=== PATIENT | female | born 1940 | race Caucasian/White ===

== ENCOUNTER 2018-03-01 20:04 | Observation (INO) | payer MEDICARE, BC ==
[~2018-03-01] VITALS: Ht 165.1 cm; Wt 87.5 kg
[~2018-03-01 20:04] MED LIST: CYCLOBENZAPRINE10 MG PO; LOMOTIL TABLET1 EACH PO; MEDROL4 M1 PO; NAPROXEN500 MG PO; NORVASC5 MG PO; OMEPRAZOLE20 M1 PO; TOPROL XL100 MG PO
--- OUTSIDE RECORDS SUMMARY | 2018-03-01 20:08 | XMS ---
PreManage Notification: JOVANA CHAIREZ Security Can Carrier Events No recent Security Events currently on file CRITERIA MET - POL CARE PROVIDERS There are no care providers on record at this time. Thuy has no Care Guidelines for this patient. Radha VISIT COUNT (12 MO.) 2 [facility] [place] TOTAL 2 NOTE: Visits indicate total known visits. ED/UCC VISIT TRACKING (12 MO.) 03/01/2018 20:04 [facility] [place] TYPE: Emergency COMPLAINT: - R LEG PAIN/NO INJURY 08/23/2017 18:02 [facility] [place] TYPE: Emergency COMPLAINT: - FAINTING/ILL DIAGNOSES: - Other [place] [facility] (current[facility] drug therapy - Nicotine dependence, unspecified, uncomplicated - Influenza due to other identified influenza virus with other respiratory manifestations - Essential (primary) hypertension - Syncope and collapse - Dehydration INPATIENT VISIT TRACKING (12 MO.) No inpatient visits to display in this time frame [email or web address]
--- NOTE | 2018-03-02 02:00 | NUR ---
PT ARRIVED ON FLOOR AT 0150. SBP WAS ELEVATED AT 160. PT AT THAT TIME DENIED PAIN AND HAD NO OTHER CONCERNS.
--- NOTE | 2018-03-02 02:24 | NUR ---
PT ARRIVED TO UNIT VIA STRETCHER. PT PULLED TO BED. TOLERATED WELL. PT C/O SPASMS TO R KNEE WHILE WRTIER PERFORMING ADMISSION ASSESSMENT. PT REQUESTS PRN. PT DENIES OTHER NEEDS AT THIS TIME. CALL LIGHT WITHIN REACH.
--- NOTE | 2018-03-02 03:08 | NUR ---
0.5MG DILAUDED WAS GIVEN FOR PAIN /. RIGHT PEDIS PULSE IS +1 BUT TOES ARE WARM TO TOUCH. RIGHT KNEE HAS MINIMAL EDEMA PRESENT, NO REDNESS OR HEAT NOTED. ALL LOBES ARE CLEAR, ABD SOUNDS ARE PRESENT. PT IS DUE TO VOID BY 0600. NO NEW CONCERNS NOTED AT THIS TIME.
--- NOTE | 2018-03-02 05:00 | NUR ---
PT AT THIS TIME IS SLEEPING.
--- NOTE | 2018-03-02 06:13 | NUR ---
PT ARRIVED ON FLOOR AT 0150. SBP WAS ELEVATED 162. ALL LOBES ARE CLEAR, ABD SOUNDS PRESENT. RIGHT KNEE HAS MINIMAL EDMEA, PEDIS PULSES +2, NO REDNESS AND NO HEAT NOTED. PAIN IS WELL CONTROLLED WITH PRN PAIN MEDS. PT AT TIMES HAS LEG SPASMS WELL. PT SO FAR STILL HAS NOT VOIDED. WILL PUT PT ON BED HIGH SINCE SHE IS NOT ABLE TO PUT WEIGHT ON HER RIGHT LEG.
--- NOTE | 2018-03-02 07:50 | NUR ---
PT OFF FLOOR TO CT/XRAY. ORDER FOR 2 VIEW CHEST X-RAY AND CT OF R KNEE. PATEL WILL BE PLACED ONCE SHE RETURNS. PT ABLE TO STAND PIVOT TO WHEELCHAIR.
--- NOTE | 2018-03-02 07:56 | NUR ---
RECIEVED REPORT FROM JENN CHAO. DR HARRISON IN ROOM WITH PT. DISCUSSED PLAN OF CARE, GETTING OUT OF BED, IMAGING, AND PATEL. RN WILL PLACE PATEL WHEN PT RETURNS TO THE FLOOR FROM IMAGING.
--- NOTE | 2018-03-02 08:18 | NUR ---
pateint went for a CT, back and breakfast is ordered
--- NOTE | 2018-03-02 10:00 | NUR ---
PATEL PLACED BY JENN AGUILAR WITH ASSISTANCE FROM JENN CHILDS. PT TOLERATED WELL. PATEL PLACED IN STERILE FASHION. CLEAR YELLOW URINE RETURNED.
[2018-03-02] MEDS ORDERED: OMEPRAZOLE MAGN20 MG PO (10:28)
--- NOTE | 2018-03-02 10:28 | NUR ---
MED REC COMPLETE
--- NOTE | 2018-03-02 12:44 | NUR ---
PT RESTING IN BED, WAITING FOR HER AND DAUGHTER TO RETURN. SHE HAS LUNCH AT BEDSIDE, SHE WILL EAT WHEN THEY RETURN. BOLUS OF FLUIDS IS RUNNING. NO COMPLAINTS OF PAIN, NO NAUSEA, NO VOMITING. PATEL DRAINING YELLOW URINE.
--- NOTE | 2018-03-02 13:46 | NUR ---
REPORT RECEIVED FROM JENN CHILDS. PT IN BED WITH FAMILY IN ROOM. TALKATIVE AND PLEASANT. PT DENIES CONCERNS. STATES HER KNEE IS SWOLLEN AND IS STILL PAINFUL BUT ACCEPTABLE.
--- NOTE | 2018-03-02 16:15 | NUR ---
PT SLEEPING AND APPEARS COMFORTABLE. FAMILY IN ROOM.
--- NOTE | 2018-03-02 17:24 | NUR ---
PT UP TO BEDSIDE COMMODE FOR SOME GAS. PT ABLE TO PIVOT TO BEDSIDE COMMODE. FAMILY IN ROOM. PT STATES HER KNEE IS FEELING MODERATELY BETTER.
--- NOTE | 2018-03-02 18:28 | NUR ---
PT HAD A GOOD NAP THIS AFTERNOON AND STATES THAT HER KNEE IS FEELING SLIGHTLY BETTER. WAS ABLE TO PIVOT TRANSFER TO THE BEDSIDE COMMODE FOR SOME GAS. GABAPENTIN SEEMS TO BE HELPING SHE HAS NOT HAD ANY PAIN MEDICATION. SL. JORGE MONTES DE OCA DRAINING LIGHT YELLOW URINE. ENCOURAGE ORAL INTAKE. 1 LITER BOLUS GIVEN.
--- NOTE | 2018-03-02 20:00 | NUR ---
RECEIVED REPORT AT 1900. FOUND PT IN BED AWAKE WITH AT BEDSIDE. PT HAD NO NEEDS OR CONCERNS AT THIS TIME.
--- NOTE | 2018-03-02 20:27 | NUR ---
VITALS DONE AND CHARTED.
--- NOTE | 2018-03-02 22:00 | NUR ---
V/S ARE WDL, ALL LOBES ARE CLEAR, ABD SOUNDS ARE PRESENT. RIGHT KNEE HAS SLIGHT EDEMA PRESENT BUT NO REDNESS OR HEAT WAS NOTED. SLIGHT EDEMA WAS ALSO NOTED TO RIGHT ANKLE. PT DENIES PAIN OR MUSCLE SPASMS AT THIS TIME. NO NEW CONCERNS NOTED SO FAR.
--- NOTE | 2018-03-03 | NUR ---
PT IS SLEEPING AT THIS TIME. RR IS REGULAR.
--- NOTE | 2018-03-03 02:00 | NUR ---
PT IS SLEEPING AT THIS TIME. RR NORMAL.
--- NOTE | 2018-03-03 04:01 | NUR ---
PT IS SLEEPING AT THIS TIME.
--- NOTE | 2018-03-03 05:12 | NUR ---
PT HAD AN UNEVENTFUL NIGHT. RIGHT KNEE HAS HAD NO CHANGES IN SYMPTOMS AND APPEARANCE SINCE HER ADMISSION. PT DID NOT NEED ANY PRN PAIN MEDICATION FORM ME SO FAR. V/S ARE WDL SO FAR. URINE OUTPUT IS ADEQUATE. NO NEW CONCERNS SO FAR.
--- NOTE | 2018-03-03 06:18 | NUR ---
VITALS AND I&OS DONE AND CHARTED. FRESH WATER GIVEN. BEDSIDE TABLE AND CALL LIGHT IN REACH.
--- NOTE | 2018-03-03 07:18 | NUR ---
RECIEVED BEDSIDE REPORT FROM JENN ADAMS. PT AWAKE AND ALERT IN BED, SMILING AND TALKING. PT REPORTS FEELING "GOOD", REQUESTS 3RD CUP OF COFFEE. PT REPORTS NO PAIN IN RIGHT KNEE, NO REDNESS, NO WARMTH. PATEL DRAINING COPIOUS AMOUNTS OF URINE.
--- NOTE | 2018-03-03 08:15 | NUR ---
PATEINT BOARD UPDATED, PATEINT IN BED, SAID SHE IS FEELING BETTER, BREAKFAST ORDERED
--- NOTE | 2018-03-03 09:29 | NUR ---
DISCUSSED TIMING OF CARE WITH FELA, PHYSICAL THERAPY. SHE WILL BE IN TO DO PT EVAL ABOUT 1000. WE DISCUSSED OFFERING PAIN MEDICATION PRIOR TO EVAL. RN ASKED PT IF SHE WOULD LIKE PAIN MEDICATIONS PRIOR TO PHYSICAL THERAPY. PT DECLINED PAIN MEDS, STATED "I'LL BE STRONG". RN EDUCATED PT ON TAKING APPROPRIATE PAIN MEDICATIONS AND HEALING. PT STILL DECLINED PAIN MEDS. RN ADVISED TO CALL IF SHE CHANGES HER MIND OR NEEDS PAIN MEDS AFTER PHYSICAL THERAPY.
--- NOTE | 2018-03-03 09:52 | NUR ---
PATIENT IN BED, REFILLED ICE WATER, NEEDED NO OTHER ASSISTANCE AT THE TIME
--- NOTE | 2018-03-03 14:02 | NUR ---
PT IN BED WITH FAMILY AT BEDSIDE. STATES SHE HAS NO PAIN IN HER KNEE UNLESS SHE MOVES IT. TOLERATED PHYSICAL THERAPY WELL. NO NAUSEA, NO DISCOMFORT, PT STATES SHE "FEELS PRETTY GOOD TODAY."
--- NOTE | 2018-03-03 15:27 | NUR ---
PT CALLED RN TO ROOM TO ASSIST HER WALKING TO THE BATHROOM. PT ATTEMPTED TO HAVE A BM, NO RESULTS. PT WALKED WITH RN AND FWW TO BATHROOM. TOLERATED WELL. PT REPORTED PAIN WITH AMBULATION, BUT PAIN WAS TOLERABLE. DENIED NEED FOR PAIN MEDICATIONS. DAUGHTER AT BEDSIDE.
--- NOTE | 2018-03-03 17:27 | NUR ---
PATIENT RESTING IN BED, CALL LIGHT IN REACH, FAMILY IN ROOM. NO OTHER NEEDS AT THIS TIME.
--- NOTE | 2018-03-03 17:29 | NUR ---
PT REMAINS AFEBRILE WITH NO REDNESS, MINIMAL SWELLING, AND NO WARMTH ON RIGHT KNEE. PT REPORTS PAIN WITH MOVEMENT, BUT PAIN IS TOLERABLE. PT INITIATED AMBULATION IN ROOM WITH FWW AND RN. ONE PERSON ASSIST. PT TOLERATING DIET WELL. URINE OUTPUT QS. VSS. PT EVAL COMPLETE. PT AMBULATED WITH PHYSICAL THERAPY.
--- NOTE | 2018-03-03 20:00 | NUR ---
RECEIVED REPORT AT 1900, FOUND PT IN BED WATCHING TV. PT DENIED PAIN AND HAD NO OTHER CONCERNS AT THAT TIME.
--- NOTE | 2018-03-03 20:45 | NUR ---
VITALS AND I&OS DONE AND CHARTED, FRESH ICE WATER GIVEN. BEDSIDE TABLE AND CALL LIGHT IN REACH. PT NEEDS NOTHING AT THIS TIME.
--- NOTE | 2018-03-03 21:58 | NUR ---
V/S ARE WDL, ALL LOBES CLEAR. RIGHT KNEE HAS LOOKED THE SAME SINCE ADMISSION. PAIN IS 6/10. PRN 5MG OXY GIVEN. NO CHANGES AT ALL NOTED SO FAR.
--- NOTE | 2018-03-04 | NUR ---
PT IS SLEEPING AT THIS TIME.
--- NOTE | 2018-03-04 02:00 | NUR ---
PT IS SLEEPING AT THIS TIME.
--- NOTE | 2018-03-04 04:10 | NUR ---
FOUND PT AWAKE IN BED COMPLAINING OF PAIN 6/10. PT STATED THAT PO PRN OXY DID NOT HELP. WHILE GIVING IV PRN TORADOL IT WAS NOTED THAT HER IV SITE WAS LEAKING. PT AT THIS TIME REFUSES A NEW IV SITE AND DOES NOT WANT THE PO PRN OXY EITHER. MD HARRISON TO BE CALLED FOR ANOTHER PO PRN PAIN MEDICATION.
--- NOTE | 2018-03-04 06:26 | NUR ---
PT AT FIRST HAD A VERY UNEVENTFUL NIGHT. PRN OXY WAS GIVEN BEFORE BEDTIME DUE TO PAIN. RIGHT KNEE HAS REMAIND UNCHANGED SINCE ADMISSION ON 03/02. PT SLEPT MOST OF THE NIGHT. V/S ARE WDL. AT ABOUT 0400 PT HAD PAIN 6/10 AND IV TORADOL WAS TO BE GIVEN. IV SITE WAS LEAKING, PT REFUSED A NEW SITE AND ALSO REFUSED PRN OXY. MD HARRISON WAS CALLED AND AN ORDER FOR PO TORADOL WAS GIVEN. PT AT THIS TIME IS SLEEPING. ONE NEW CONCERN AT THIS TIME IS THAT BASE OF HER LEFT THUMB IS SWOLLEN AND VERY PAINFUL TO TOUCH. WILL CONTINUE TO MONITOR.
--- NOTE | 2018-03-04 07:12 | NUR ---
RECIEVED BEDSIDE REPORT FROM JENN ADAMS. PT IS AWAKE AND ALERT IN BED. PT FEELS SHE DID NOT SLEEP MOST OF THE NIGHT, REPORT FROM NIGHT RN IS THAT SHE SLEPT WELL UNTIL 0400. PT FEELS OXY WAS NOT EFFECTIVE FOR PAIN CONTROL, PO TORADOL WAS EFFECTIVE. PT WOULD LIKE DR HARRISON TO EXPLAIN DISEASE PROCESS AND WHY SHE IS NOT "BETTER" TO PT AND HER . PT HAS NO IV ACCESS.
--- NOTE | 2018-03-04 09:45 | NUR ---
PATIENT WAS IN BED, FACE WASHED, PATIENT NOW LAYING IN BED. VITALS DONE , CALL LIGHT IN REACH, 1 PA WITH 4WW THERPHY NOW WITH PATIENT WALKING IN GUO, FRESH WATER GIVEN. NO OTHER NEEDS AT THIS TIME.
--- NOTE | 2018-03-04 09:54 | NUR ---
PT UP WALKING IN HALLS WITH PHYSICAL THERAPY. PT APPEARS TO BE TOLERATING WELL, LAUGHING AND SMILING WITH STAFF. RN ANSWERED QUESTIONS RE: GOUT POSED BY THERAPY AND PT.
--- NOTE | 2018-03-04 10:40 | NUR ---
PATIENT IN BED RESTING WATCHING TV. FRESH WATER GIVEN. CALL LIGHT IN REACH. NO OTHER NEEDS AT THIS TIME.
--- NOTE | 2018-03-04 11:25 | NUR ---
PATEL CATH REMOVED, PT TOLERATED WELL. PERICARE PERFORMED. 200ML DARK YELLOW URINE IN BAG.
[2018-03-04] MEDS ORDERED: KETOROLAC TROME10 MG PO (11:33)
[2018-03-04] MEDS ORDERED: NEURONTIN300 MG PO (11:34)
[2018-03-04] MEDS ORDERED: OXYCODONE HCL5 MG PO (11:34)
--- NOTE | 2018-03-04 12:23 | NUR ---
Verified with Dr Thorne that he intended for patient to receive #60 doses (not capsules). Called [facility], talked to Rolf [facility], changed RX to Gabapentin 300mg with sig of: Take 2 capsules PO TID. Disp #120
--- NOTE | 2018-03-04 12:33 | NUR ---
Per patient request, she does not want the RX for oxycodone. Dr Thorne is aware of this & replaced pain medication with ketorolac. Pharmacist cancelled the order for oxycodone on discharge orders.
== END 2018-03-04 13:15 | disposition home or self-care (01) ==
LOC: ED 20:04 → MS 20:05
PROVIDERS: ADMIT Specialist
PROC: 0S9C3ZX Drainage of Right Knee Joint, Percutaneous Approach, Diagnostic (ICD-10-PCS; principal; 2018-03-01)
DX: M17.11 Unilateral primary osteoarthritis, right knee (principal); M54.9 Dorsalgia, unspecified; G89.29 Other chronic pain; I10 Essential (primary) hypertension; E78.00 Pure hypercholesterolemia, unspecified; R26.2 Difficulty in walking, not elsewhere classified; F17.200 Nicotine dependence, unspecified, uncomplicated; K21.9 Gastro-esophageal reflux disease without esophagitis; M81.0 Age-related osteoporosis without current pathological fracture; K52.9 Noninfective gastroenteritis and colitis, unspecified; M25.861 Other specified joint disorders, right knee; Z79.899 Other long term (current) drug therapy
CPT/HCPCS: 20610; 36415; 51702; 71046; 73560; 73700; 80053; 81001; 82945; 85025; 85810; 86431; 87070; 87205; 89051; 89060; 96372; 96374; 96375; 97110; 97116; 97161; 99284; G0378; G8978; G8979; J1170; J1885; J2270; J3410; J7120

== ENCOUNTER 2019-06-20 01:24 | Inpatient (IN) | payer MEDICARE, BC ==
[~2019-06-20] VITALS: Ht 165.1 cm; Wt 84.4 kg
[~2019-06-20 01:24] MED LIST changes: +ASPIRIN EC325 MG PO; +CELECOXIB200 MG PO; +CHOLESTYRAMINE P4 GM PO; +FOLIC ACID1 MG PO; +GABAPENTIN300 MG PO; +GABAPENTIN600 MG PO; +IMODIUM A-D2 M2 PO; +KETOROLAC TROME10 MG PO; +LISINOPRIL5 MG PO; +MAGNESIUM400 M1 PO; +METHOTREXATE2.5 MG PO; +NEURONTIN300 MG PO; +OMEPRAZOLE MAGN20 MG PO; +OXYCODONE HCL5 MG PO; +SENNA LAX8.6 MG PO; +TYLENOL EXTRA500 MG PO; +VITAMIN B-121000 MCG PO; +VITAMIN D350 MC2 PO
--- NOTE | 2019-06-20 06:50 | NUR ---
PATIENT ARRIVED HERE ON MED/SURG AT 0645. PATIENT'S RIGHT KNEE IS STILL BANDAGED FROM HER SURGERY LAST SUNDAY. PER REPORT FROM JENN CRUZ IN THE ER. PATIENT HAD A SYNCOPAL EPISODE AT HOME AND HIT HER HEAD ON THE VANITY SHE WENT DOWN. CALLED AN AMBULANCE AND SHE WAS BROUGHT TO THE ER. PATIENT'S ACEWRAP STILL REMAINS IN PLACE FROM WHEN SHE DISCHARGED FROM HERE YESTERDAY. PATIENT STILL ON-Q AND HOA IN PLACE. HOA DRESSING COVERED IN DRIED BLOOD ON THE OUTER RIGHT HALF. PATIENT HAS A HX OF RT TOTAL KNEE ON SUNDAY. PATIENT'S PAIN IS 7/10 AND HER LAST PAIN MEDS WERE TAKEN AT HOME AT 1930. WAS TOLD IN REPORT PATIENT TAKES ASA 325MG BID. HEAD CT AND EKG NEGATIVE PER REPORT. 500ML BOLUS OF FLUID AND ROCEPHIN GIVEN IN ER.
--- NOTE | 2019-06-20 06:58 | NUR ---
PT ARRIVED TO FLOOR AT 0645. COMPLETED ADMISSION HX WITH PT. SHE IS ORIENTED TO THE ROOM AND DENIES FURTHER NEEDS AT THIS TIME. IS AT BEDSIDE AND CALL LIGHT IS CLOSE.
--- NOTE | 2019-06-20 07:37 | EKG ---
[facility] [address] [place], [place] [address] Signed Normal sinus rhythm Normal ECG When compared with ECG of 23-AUG-2017 18:08, No significant change was found Confirmed by KRIS RASHEED MD ([id number]) on 06/20/2019 7:37:02 AM Electronically Signed By: KRIS RASHEED MD 06/20/19 0737 PATIENT NAME: JOVANA CHAIREZ Electrocardiogram DATE OF : 42 PHYSICIAN: KRIS RASHEED MD REPORT #: [id number] REPORT IS CONFIDENTIAL AND NOT TO BE RELEASED WITHOUT AUTHORIZATION
--- NOTE | 2019-06-20 07:43 | NUR ---
Spoke with Briana, states she fell in the bathroom while using her walker. States she did not want to return to the hospital, family called the ambulance. States she hit the back of her head. Has ramp, walker, commode at home. Family will assist her. Would like to return to home on discharge.
--- NOTE | 2019-06-20 08:00 | NUR ---
PT STATES SHE IS COMFORTABLE AT THIS TIME, BREAKFAST ORDERED, AT BEDSIDE AND COFFEE OFFERED. COMPLETED ADMISSION ASSESSMENT, PT DENIES NEEDS AT THIS TIME.
--- NOTE | 2019-06-20 09:22 | NUR ---
MED REC COMPLETED. PATIENT DISCHARGED YESTERDAY. MED REC WAS CURRENT AT DISCHARGE.
--- NOTE | 2019-06-20 11:19 | NUR ---
SBA INTO BATHROOM USING FWW TO VOID, MINIMAL ASSIST REQUIRED DENIED DIZZINESS, ORTHOSTATIC V/S TAKEN. STATES SHE WANTS TO NAP BEFORE WORKING WITH PT. CALL LIGHT IN EASY REACH.
--- NOTE | 2019-06-20 12:42 | NUR ---
VISITED BRIEFLY WITH PT SHE WAS BEING WHEELED TO HER RM FROM ER. PT WAS DISCOURAGED, GAVE BLESSING, WILL FOLLOW NEEDED
--- NOTE | 2019-06-20 13:50 | NUR ---
IN TO TALK WITH PT, SHE STATED UNDERSTANDING OF WHY SHE CAME BACK INTO THE HOSPITAL AND THEN STATES, "I NEED A DAY OFF FROM EVERYTHING WHERE I JUST DON'T HAVE TO DO ANYTHING THAT ANYONE ASKS. I JUST WANT TO BE LEFT ALONE." STATES SHE REMEMBERS THE INFORMATION THAT WE GAVE HER FROM HER KNEE SURGERY. PT JUST WANTS TO REST.
--- NOTE | 2019-06-20 14:21 | NUR ---
PT IN TO EVAL PATIENT, PREMEDICATED FOR PAIN, PATIENT IS EMOTIONAL THIS AFTERNOON, STATES THERE IS NO SPECIFIC REASON, DENIES ANY NEEDS.
--- NOTE | 2019-06-20 15:00 | NUR ---
Discussed this patient with Dr. Mckeon. Concerns pt has arthrities, shoulder injury, and deconditioning. Will evaluate patient. In and spoke with patient and she feels she is really not able to go home. Pt is tearful. Explained options of PT with HH or possible admit to a SNF for further PT for strengthening. Gave names of SNFs/HH in the area and she would like to stay in [place]. Patient and discussed options and feel pt would do best at a SNF. Let her know I will send her chart to [facility]. Pt states she declined PT today as she did not feel up to it. I spoke with OT and PT and they both feel pt would do best with placement in a SNF and may need a longer term placement for strengthening. they feel pt wou
--- NOTE | 2019-06-20 16:45 | NUR ---
ANSWERED PATIENT'S CALL LIGHT HELPED HER A LITTLE BIT TO THE BATHROOM. SHE USED HER WALKER.
--- NOTE | 2019-06-20 17:37 | NUR ---
PT HAS BEEN UP TO BATHROOM WITH SBA USING FWW, REFUSED TO SIT UP IN CHAIR TODAY, TEARFUL WHEN PHYSICAL THERAPY WORKED WITH HER, GOOD PAIN CONTROL USING OXYCODONE AND POSITIONING OF R KNEE, ICE TO KNEE ON AND OFF TODAY, GOOD CMS TO FOOT, HIMA HOSE ON, PICCO DRSG INTACT WITH GREEN LIGHT, ON-Q PATENT AND SECURE. NO NEW SHADOWING NOTED ON DRSG. PT STATES SHE IS JUST EMOTIONAL AND MAY NEED TO GO TO [facility]. ENC PATIENT TO CONT. TO WORK WITH REHAB TO GET STRONGER. POOR APPETITE TODAY. ALTERNATIVES OFFERED BUT MOSTLY REFUSED. USING CALL LIGHT APPROPROIATELY.
--- NOTE | 2019-06-20 19:27 | NUR ---
SHIFT REPORT RECIEVED FROM JAZMINE BARAJAS. HOA DRY AND INTACT. ON-Q @ 8, HOA BLINKING GREEN. MILD SWEELING TO INNER RIGHT KNEE. PAIN 7/10, ICE PACK PROVIDED. NO OTHER NEEDS, CALL LIGHT IN REACH.
--- NOTE | 2019-06-20 20:25 | NUR ---
PT ASSESSMENT, VS AND I&O COMPLETED. PRN PAIN MEDICATION PROVIDED. PT UP TO BSC WITH 1 PA, FWW AND BACK TO BED. IV CDI, WNL, FLUSHED WELL. ICE WATER PROVIDED. HOA DRY, INTACT, FLASHING GREEN. ON-Q AT 8. NO OTHER NEEDS. CALL LIGHT IN REACH.
--- NOTE | 2019-06-21 00:02 | NUR ---
PT RESTING IN BED, EYES CLOSED. RR 16, EVEN, UNLABORED. CALL LIGHT IN REACH.
--- NOTE | 2019-06-21 02:13 | NUR ---
PT STATES PAIN IS 6/10 IN RIGHT KNEE. PRN PAIN MED PROVIDED. ASSESSMENT, VS AND I&O COMPLETED. PT PROVIDED ITEMS TO BRUSH TEETH BY CANDACE BARAJAS. ICE PACK AND ICE WATER PROVED. NO OTHER NEEDS. CALL LIGHT IN REACH.
--- NOTE | 2019-06-21 04:11 | NUR ---
PT RESTING IN BED, EYES CLOSED. RR 16, EVEN, UNLABORED. CALL LIGHT IN REACH.
--- NOTE | 2019-06-21 06:15 | NUR ---
PT CALLS TO USE BR AND BACK TO BED. PAIN 6/10 IN RIGHT KNEE. PRN PAIN MED PROVIDED. ORTHOSTATIC VS COMPLETED. ICE PACK AND ICE WATER PROVIDED. NO OTHER NEEDS. CALL LIGHT IN REACH.
--- NOTE | 2019-06-21 06:37 | NUR ---
PT HAS SLEPT MOST THE SHIFT. PAIN IN RIGHT KNEE MANAGED WITH PRN PAIN MEDICATION. GENERALIZED SWELLING NOTED TO INNER LEFT KNEE. EDEMA TO BLE, 1+, HIMA HOSE ON. ICE PACKS PROVIDED FOR KNEE. HOA HAS DRIED BLOOD OVER MOST THE DRESSING, BLINKING GREEN. ON-Q SET AT 8. ORTHOSTATIC VITALS TAKEN, NEGATIVE. PT AMBULATES WELL WITH 1PA, FWW. PT HAS A LOWER BP IN THE LEFT ARM THAN THE RIGHT ARM. TELE # 1 SR TRENDING IN THE 60S. IV CDI, WNL, FLUSHED WELL.
--- NOTE | 2019-06-21 07:22 | NUR ---
PT RESTING EYES CLOSED BEDSIDE REPORT RECEIVED
--- NOTE | 2019-06-21 08:44 | NUR ---
SPOKE WITH DR RASHEED RE B/P OF , INSTRUCTED TO GIVE METOPROLOL BUT HOLD LISINOPRIL THIS AM. OK TO DC ORTHOSTATIC BP. CONT. TELE AT THIS TIME.
--- NOTE | 2019-06-21 08:51 | NUR ---
THRUSH SYMTOMS AND LOW BP REPORTED TO DR DUGAN SHE INSTRUCTS HOLD LISINOPRIL GIVE METOPROLOL
--- NOTE | 2019-06-21 11:07 | NUR ---
DAUGHTER PRESENT IN ROOM, PT UP TO WORK WITH P/T
--- NOTE | 2019-06-21 12:30 | NUR ---
CALL LIGHT ANSWERED. PATIENT RESTING IN BED. FAMILY IN ROOM. PATIENT GOES TO USE THE BATHROOM. PATIENT USES WALKER. ONE PERSON ASSISTING. PATIENT BACKS TO BED. CALL LIGHT WITHIN REACH. NO OTHER NEEDS AT THIS TIME
--- NOTE | 2019-06-21 13:26 | NUR ---
PATIENT RESTING IN BED. AND RN IN ROOM. VITAL SIGNS AND I&O DONE. CALL LIGHT WITHIN REACH. NO OTHER NEEDS AT THIS TIME
--- NOTE | 2019-06-21 14:27 | NUR ---
DR HARRISON IN TO SEE PT, REMOVES DRESSING TO KNEE APPLIES A ZIP CLOSURE DEVICE INSTRUCTS STAFF TO APPLY ALLEVYN OVER THIS. PT IS RESTING IN BED CRYO IN PLACE. AGREES SHE IS COMFORTABLE.
--- NOTE | 2019-06-21 15:45 | NUR ---
PATIENT RESTING IN BED. IN ROOM. CALL LIGHT WITHIN REACH. NO OTHER NEEDS AT THIS TIME
--- NOTE | 2019-06-21 17:39 | NUR ---
PATIENT RESTING IN BED. VITAL SIGNS AND I&O DONE. LOW SYSTOLIC BLOOD PRESSURE. RN NOTIFIED. CRYO MACHINE FILLED. CALL LIGHT WITHIN REACH. NO OTHER NEEDS AT THIS TIME
--- NOTE | 2019-06-21 19:26 | NUR ---
SHIFT REPORT RECIEVED FROM MAYCOL BARAJAS. R KNEE SWELLING TO INNER KNEE, GENERALIZED. DRESSING DRY AND INTACT, SMALL AREA OF DRIED BLOOD. IV CDI. PAIN 5/10, PT DENIES NEED FOR PAIN INTERVENTION. CRYO CUFF, HIMA HOSE IN PLACE. TELE #1 SHOWS SR @ 70. NO NEEDS AT THIS TIME. CALL LIGHT IN REACH.
--- NOTE | 2019-06-21 20:34 | NUR ---
ZEESHAN'Delma TELE, RN ROUTE DELIVERY SUPERVISOR CALLED SAYING DR MARTINEZ SAID TO ZEESHAN TELE. VS AND I&O'S ENTERED. PT DENIES NEEDS FURTHER NEEDS AT THIS TIME. CALL LIGHT IS WITHIN REACH.
--- NOTE | 2019-06-21 21:31 | NUR ---
ASSESSMENT COMPLETED. SCHEDULED MEDS PROVIDED. PRN PAIN MED PROVIDED FOR 6/10 RIGHT KNEE PAIN. DRESSING DRY, INTACT. IV CDI, WNL, FLUSHED WELL. BLE 1+ EDEMA. SCATTERED BRUISING ON ARMS. BRUISE NOTED TO UPPER RIGHT BACK. EDEMA ON INNER RIGHT KNEE, GENERALIZED. NO OTHER NEEDS AT THIS TIME, CALL LIGHT IN REACH.
--- NOTE | 2019-06-21 23:30 | NUR ---
PT RESTING IN BED, EYES CLOSED. RR 14, EVEN, UNLABORED. CALL LIGHT IN REACH.
--- NOTE | 2019-06-22 01:36 | NUR ---
PT RESTING IN BED, EYES CLOSED. RR 12, EVEN, UNLABORED. CALL LIGHT IN REACH.
--- NOTE | 2019-06-22 03:04 | NUR ---
PT CALLS TO USE BR. PT TOLERATES FWW WELL. UP TO BR AND BACK TO BED. PAIN IN RIGHT KNEE /. PRN PAIN MED PROVIDED. ASSESSMENT AND VS COMPLETED. CRYO CUFF REFILLED WITH ICE WATER. ICE WATER PROVIDED. NO CHANGES TO EDEMA OT BANDAGING. NO OTHER NEEDS, CALL LIGHTS IN REACH.
--- NOTE | 2019-06-22 05:00 | NUR ---
PT RESTING IN BED, EYES CLOSED. RR 14, EVEN, UNLABORED. CALL LIGHT IN REACH.
--- NOTE | 2019-06-22 05:16 | NUR ---
PT HAS SLEPT MOST THE SHIFT. PAIN MANAGED WITH PRN MEDS. DRESSING DRY, INTACT, 2 SMALL AREAS OF DRY BLOOD. GENERALIZED EDEMA TO INNER RIGHT KNEE AND 1+ EDEMA BLE. IV CDI, WNL, FLUSHED WELL. PT TOLERATED FWW, SBA WELL. UO SUFFICIENT. VSS WITH BP TAKEN ON RIGHT ARM. PT TOLERATED CRYO CUFF WELL.
--- NOTE | 2019-06-22 06:24 | NUR ---
PT UP TO USE BR AND BACK TO BED, FWW, SBA. VS AND I&O COMPLETED. CRYO CUFF ON, HIMA HOSE ON. NO OTHER NEEDS. CALL LIGHT IN REACH.
--- NOTE | 2019-06-22 07:16 | NUR ---
PT RESTING IN BED ALERT AND ORIENTED WATCHING TV. BEDSIDE REPORT RECEIVED FROM JENN HOLDER. PT DENIES NEEDS OR CONCERNS. CALL LIGHT AND H2O IN REACH. DSG CDI WITH SLIGHT SHADOWING TO RIGHT KNEE WITH SOME SWELLING NOTED. PT STATES SHE IS COMFORTABLE, NO NEEDS OR CONCERNS VOICED. CRYO CUFF AND HIMA HOSE IN PLACE AND PT TOLERATING WELL.
--- NOTE | 2019-06-22 08:32 | NUR ---
PT RESTING SUPINE IN BED ALERT AND ORIENTED. CALL LIGHT AND H2O IN REACH. PT ASSESSMENT COMPLETED. PT REPORTS PAIN OF 6/10 TO RIGHT KNEE. PRN PO ANALGESICS AND AM MEDS ADMINSITERED -SEE EMAR.
--- NOTE | 2019-06-22 10:30 | NUR ---
Pt assisted up to restroom with sba, pt back to bed. Call light and h2o in reach and provided pt with warm blanket. no furhter needs or concerns voiced. Cryo cuff in place.
--- NOTE | 2019-06-22 13:25 | NUR ---
tax technician currently in room completing ultrasound. Call light and h2o in reach. No needs or concerns voiced.
--- NOTE | 2019-06-22 15:35 | NUR ---
PT RESTING IN BED WATCHING FOOTBALL. PT DENIES NEEDS OR CONCERNS. CALL LIGHT AND H2O IN REACH. CRYO CUFF IN PLACE.
--- NOTE | 2019-06-22 17:15 | NUR ---
IN TO ANSWER CALL LIGHT. PT ASSISTED UP TO RESTROOM WITH SBA AND FWW. PT VOIDS Q.S. CLEAR YELLOW URINE AND ASSISTED BACK TO BED. CALL LIGHT AND H2O IN REACH. PT ASSISTED INTO POSITION OF COMFORT AND FRESH ICE WATER PROVIDED. NO OTHER NEEDS OR CONCERNS VOICED.
--- NOTE | 2019-06-22 19:15 | NUR ---
SHIFT REPORT RECEIVED FROM DAYSHIFT JENN WANG AT BEDSIDE. PT AWAKE AND RESTING IN BED, CYRO CUFF REMOVED PER PT REQUEST, DRESSING INTACT. NO FURTHER NEEDS, CALL LIGHT IN REACH.
--- NOTE | 2019-06-22 20:49 | NUR ---
ROUNDED CHARGE. PATIENT ASSISTED TO THE RESTROOM A SBA W/FWW. PATIENT WAS ABLE TO VOID. PATIENT IS BACK IN BED RESTING. PATIENT DENIES ANY FURTHER NEEDS. CALL LIGHT IN REACH. PATIENT IS REFUSING TO WEAR CRYO AT THIS TIME. EDUCATED PATIENT ON IMPORTANCE OF CRYO. PATIENT CONTINUES TO REFUSE.
--- NOTE | 2019-06-22 21:06 | NUR ---
ASSESSMENT COMPLETE, SCHEDULED MEDS GIVEN (SEE EMAR). PT A/O, RATES PAIN 6/10, SCHEDULED AND PRN PAIN MEDICATION GIVEN. VSS. CYRO CUFF PLACED TO RIGHT KNEE PER PT REQUEST, DRESSING TO RIGHT KNEE INTACT. SCANT YELLOW SHADOWING NOTED. 1-2+ EDEMA NOTED, SKIN SLIGHTLY WARMER COMPARED TO LEFT KNEE. PT DENIES ADDITIONAL NEEDS, [employer] CONTROL AND LOGISTICS ANALYST IN ROOM TO REFILL CYRO CUFF MACHINE. CALL LIGHT IN REACH.
--- NOTE | 2019-06-22 22:13 | NUR ---
CRYO AND ICE WATER REFILLED.
--- NOTE | 2019-06-22 22:13 | NUR ---
V/S AND I&O TAKEN AND CHARTED BY PRIMARY JENN WALTER.
--- NOTE | 2019-06-22 22:37 | NUR ---
SBA TO THE BATHROOM USING WALKER. PATIENT IS BACK IN BED. PATIENT ASKED THE CRYO CUFF OFF. WARM BLANKET PEOVIDED. CALL LIGHT IN REACH. ROOM LIGHTS OFF.
--- NOTE | 2019-06-22 23:07 | NUR ---
MANUAL BP TAKEN BY THIS RN ON RIGHT ARM. BP WITHIN FLOOR PARAMTERS, WILL MONITOR. NO NEEDS, CALL LIGHT IN REACH.
--- NOTE | 2019-06-23 02:14 | NUR ---
ASSESSMENT COMPLETE, NO NEW CONCERNS. PT A/O, DENIES PAIN. RECENTLY RETURNED FROM BATHROOM WITH HELP FROM BLAS PERKINS. DRESSING TO RIGHT KNEE INTACT, NO NEW SHADOWING OR INCREASED EDEMA NOTED. CYRO CUFF IN PLACE. BILATERAL PEDAL PULSES NOTED. PT REPORTS BLOOD WHEN WIPING, REDDNESS FROM SCANT RAW AREA NOTED IN BETWEEN BUTTOCKS. BARRIER CREME ALREADY IN PLACE. NO FURTHER NEEDS VERBALIZED AT THIS TIME, CALL LIGHT IN REACH.
--- NOTE | 2019-06-23 04:10 | NUR ---
PT RESTING IN BED, EYES CLOSED. RR EVEN AND UNLABORED. NO DISTRESS NOTED AT THIS TIME, PT APPEARS COMFORTABLE. CALL LIGHT IN REACH.
--- NOTE | 2019-06-23 04:42 | NUR ---
PT A/O, PAIN CONTROLLED WITH PRN PAIN MEDICATION. VSS, PT USES CALL LIGHT APPROPERIATELY. REGULAR DIET, TOLERATING WELL. NO NAUSEA. SBA WITH FWW, VOIDING QS. NO BM. DRESSING TO RIGHT KNEE INTACT, SCANT SHADOWING. CYRO CUFF.
--- NOTE | 2019-06-23 06:39 | NUR ---
INFOMRED BY BLAS PERKINS OF ELEVATED BP, MANUAL BP TAKEN BY THIS RN. RESULT OF 184/66, APICAL HR OF 68. DR MARTINEZ MADE AWARE, TELEPHONE ORDERS READ BACK TO GIVE SCHEDULED AM METOPROLOL AND LISINOPRIL AT THIS TIME (SEE EMAR). DR MARTINEZ ALSO MADE AWARE OF REDDENED SQUARE AREA NOTED BEHIND PT'S RIGHT KNEE. DIRECTOR OF EMPLOYER SERVICES ALSO MADE AWARE. OUTLINED WITH SKIN MARKER, NO NEW ORDERS FROM MD. WILL MONITOR. PT REPORTS CONCERN R/T POSSIBLE RETURNED THRUSH. MESSAGE SENT TO DR MARTINEZ. NO FURTHER NEEDS, CALL LIGHT IN REACH.
--- NOTE | 2019-06-23 07:30 | NUR ---
PATIENT SITTING UP IN BED. PATIENT'S BREAKFAST ORDERED. CALL LIGHT WITHIN REACH. NO OTHER NEEDS AT THIS TIME
--- NOTE | 2019-06-23 07:43 | NUR ---
PT CALLED FOR ASSISTANCE TO RESTROOM. AMB TO BATHROOM WITH MINIMAL SBA. HAD SMALL AMOUNT OF BROWN LIQUID BM WITH SCANT AMOUNT OF SARAH BLOOD NOTED, SMALL BIT OF SARAH BLOOD NOTED WITH WIPING WELL. PT REPORTS SIGNIFICANT TENDERNESS AND "BURNING" OF RECTUM WITH WIPING. BARRIER CREAM APPLIED TO RECTUM AFTER CLEANING UP WITH WET WIPES. PT AMB BACK TO BED. SITTING UP AT EDGE OF BED NOW. DENIES PAIN OR OTHER CONCERN. CALL LIGHT WITHIN REACH.
--- NOTE | 2019-06-23 08:04 | NUR ---
NOTED PT BP ELEVATED, ALL OTHER VS STABLE AND WITHIN PT'S NORMAL RANGE. PT DENIES HEADACHE, DIZZINESS, CHEST DISCOMFORT, VISION CHANGES, OR OTHER CONCERNS. NOTIFIED DR. MARTINEZ. RECIEVED ORDER FOR LISINOPRIL, SEE EMAR. PT MEDICATED. CRYO CUFF IN PLACE TO RIGHT KNEE. RIGHT KNEE INCISION DRESSED WITH ALLEVYNS, SMALL AMOUNT OF BROWNISH DRAINAGE NOTED. MODERATE AMOUNT OF EDEMA NOTED OF RIGHT LE, BRUISING AROUND RIGHT KNEE WITH REDNESS MARKED WITH SURGICAL PEN. PT ALERT AND ORIENTED. DENIES PAIN. CALL LIGHT WITHIN REACH.
--- NOTE | 2019-06-23 08:53 | NUR ---
In and spoke with Briana. She continues to want to go to a SNF. Reminded I had sent her chart last week and had received tentative agreement from [facility]. She states she is having and ECHO in the next hour. Confirmed this will be in the next hour. Left message for [facility] asking is they can still take today, transport, and time?
--- NOTE | 2019-06-23 09:12 | NUR ---
CALL LIGHT ANSWERED. PATIENT RESTING IN BED. PATIENT GOES TO USE THE BATHROOM. LINENS CHANGED. PATIENT BACKS TO BED. PATIENT USES WALKER. ONE PERSON ASSISTING. VITAL SIGNS AND I&O DONE. CRYO MACHINE FILLED. CALL LIGHT WITHIN REACH. ICE WATER GIVEN. NO OTHER NEEDS AT THIS TIME
--- NOTE | 2019-06-23 09:45 | NUR ---
PT ASSISTED TO RESTROOM WITH SBA AND WALKER, AMB BACK TO BED. DIRECTOR HR COMMUNICATIONS PRESENT TO PERFORM ECHO. CALL LIGHT WITHIN REACH.
--- NOTE | 2019-06-23 11:00 | NUR ---
Notified by Dr Zeng he will write orders the SNF as pt has completed [facility].
--- NOTE | 2019-06-23 11:10 | NUR ---
Notified by Dr. lauren to SNF is now on hold as he feels her surgical wound maybe infected. [facility] notified.
--- NOTE | 2019-06-23 11:15 | NUR ---
DR. MARTINEZ ROUNDING ON PT. OBTAINED MANUAL BP. ALLEVYN DRESSING REMOVED FROM RIGHT KNEE BY DR. MARTINEZ TO ASSESS INCISION SITE. NEW ALLEVYN DRESSINGS APPLIED AFTER ASSESSMENT. CRYO CUFF APPLIED TO RIGHT KNEE. PT AT BEDSIDE. CALL LIGHT WITHIN REACH.
--- NOTE | 2019-06-23 11:33 | NUR ---
VISITED WITH PT SHE WAS SITTING UP IN BED. SHE IMMEDIATELY BEGAN TO LET ME KNOW SHE WAS STRUGGLING WITH WHAT WAS HAPPENING IN HER LIFE. SHE WAS NOT ABLE TO GET MUCH SLEEP, AND WAS UNSURE WHAT WAS HAPPENING NEXT IN HER CARE. SHE DID SAY THAT THE RN'S HAD BEEN GOOD TO HER. HAD PRAYER WITH PT AND INFORMED HER I WOULD CHECK WITH STAFF TO SEE IF THEY HAVE ANY NEWS TO GIVE TO HER. SHE THANKED ME AND WILL FOLLOW NEANASTASIIA
--- NOTE | 2019-06-23 13:10 | NUR ---
PT ATE ALL OF LUNCH, BOBO WELL. SBA WITH WALKER TO RESTROOM, BACK TO BED. CRYO CUFF TO RIGHT KNEE. NO NEW DRAINAGE TO NEW DRESSING. PT DENIES PAIN OR OTHER CONCER AT THIS TIME. AT BEDSIDE. CALL LIGHT WITHIN REACH.
--- NOTE | 2019-06-23 14:02 | NUR ---
PATIENT RESTING IN BED. IN ROOM. VITAL SIGNS AND I&O DONE. CALL LIGHT WITHIN REACH. NO OTHER NEEDS AT THIS TIME
--- NOTE | 2019-06-23 15:15 | NUR ---
PT LYING IN BED. EYES CLOSED, RESP EVEN AND UNLABORED. AT BEDSIDE. CALL LIGHT WITHIN REACH.
--- NOTE | 2019-06-23 15:49 | NUR ---
CALL LIGHT ANSWERED. PATIENT RESTING IN BED. IN ROOM. PATIENT GOES TO USE THE BATHROOM. HANDS WASHED. PATIENT BACKS TO BED. CRYO MACHINE FILLED. ICE WATER GIVEN. CALL LIGHT WITHIN REACH. NO OTHER NEEDS AT THIS TIME
--- NOTE | 2019-06-23 17:07 | NUR ---
PATIENT RESTING IN BED. VITAL SIGNS AND I&O DONE. CALL LIGHT WITHIN REACH. NO OTHER NEEDS AT THIS TIME
--- NOTE | 2019-06-23 18:00 | NUR ---
PT LYING IN BED WATCHING TV. REPORTS SHE WASN'T HUNGRY AND DIDN'T WANT TO EAT DINNER. DENIES PAIN OR OTHER CONCERNS AT THIS TIME. REQUESTED TO HAVE CRYO CUFF REMOVED IT WAS "FREEZING MY LEG OFF". REMOVED AT THIS TIME. CALL LIGHT WITHIN REACH.
--- NOTE | 2019-06-23 18:42 | NUR ---
CALL LIGHT ANSWERED. PATIENT RESTING IN BED. PATIENT GOES TO USE THE BATHROOM. PATIENT USES WALKER. ONE PERSON ASSISTING. PATIENT BACKS TO BED. CALL LIGHT WITHIN REACH. NO OTHER NEEDS AT THIS TIME
--- NOTE | 2019-06-23 19:12 | NUR ---
CHARGE NURSE REPORT RECEIVED FROM DAYSHIFT. PT IN BED, AWAKE AND WATCHING TV, NO NEEDS AT THIS TIME.
--- NOTE | 2019-06-23 19:20 | NUR ---
REPORT RECEIVED FROM DAY SHIFT RN. PT LYING IN BED, ALERT AND ORIENTED WATCHING TV. PT DENIES FURTHER NEED AT THIS TIME. CALL LIGHT IN REACH.
--- NOTE | 2019-06-23 20:30 | NUR ---
CALL LIGHT ANSWERED. PT UP TO BR WITH FWW AND SBA, GAIT STEADY, DENIES DIZZINESS. BACK TO BED, BOBO WELL. CALL LIGHT IN REACH.
--- NOTE | 2019-06-23 21:15 | NUR ---
PM ASSESSMENT COMPLETE. PM MEDS GIVEN WITHOUT ISSUE. PT DENIES PAIN AT THIST TIME. FOAM DRESSING ON RIGHT KNEE INTACT WITH SMALL AMOUNT OF DRAINAGE. BRUISING AND REDNESS NOTED ON RIGHT KNEE, REDNESS REMAINS UNCHANGED. PT DENIES DIZZINESS AT THIS TIME. PRN GIVEN FOR SLEEP. PT IS REFUSING TO WEAR CRYO CUFF. CALL LIGHT WITHIN REACH.
--- NOTE | 2019-06-24 00:49 | NUR ---
PT RESTING IN BED WITH EYES CLOSED, NAD.
--- NOTE | 2019-06-24 02:20 | NUR ---
CALL LIGHT ANSWERED. PT C/O DRY MOUTH, ICE CHIPS AND HARD CANDY GIVEN. FRESH ICE TO CRYO CUFF, PT AGREEING TO WEAR IT AT THIS TIME.
--- NOTE | 2019-06-24 04:24 | NUR ---
PATIENT IS SLEEPING.
--- NOTE | 2019-06-24 05:05 | NUR ---
PT RESTED WELL. A&O, USES CALL LIGHT. SBA WITH FWW TO BR. PT C/O DIZZINESS X 2. RIGHT KNEE BRUISED AND SWOLLEN, REDNESS THAT WAS OUTLINED ON PREVIOUS SHIFT UNCHANGED. DRESSING CDI. DENIES PAIN. ORAL ABX.
--- NOTE | 2019-06-24 06:42 | NUR ---
PT UP TO BR WITH SBA AND FWW, GAIT STEADY. DENIES DIZZINESS. BACK TO BED, BOBO WELL. FRESH ICE TO CRYO. PT DENIES PAIN.
--- NOTE | 2019-06-24 07:46 | NUR ---
BEDSIDE REPORT RECEIVED FROM TODD BARAJAS. WHITE BOARD UPDATED. PATIENT AWAKE SITTING UP IN BED. SALINE LOCKED. NO BM OVERNIGHT. NO NEEDS AT THIS TIME.
--- NOTE | 2019-06-24 07:51 | NUR ---
PATIENT RESTING IN BED. ICE WATER GIVEN. CALL LIGHT WITHIN REACH. NO OTHER NEEDS AT THIS TIME
--- NOTE | 2019-06-24 08:25 | NUR ---
PT UP TO BATHROOM TO VOID, ONE PERSON WITH FWW. PT NOTED TO HAVE LIGHT SARAH RED TRACE BLOOD IN DEPENDS PT REPORTS " THAT IS FROM MY SORE BUTT CRACK" NOTED TO POSSIBLY HAVE HEMORRHOID ALSO. BARRIER CREAM APPLIED.
--- NOTE | 2019-06-24 09:00 | NUR ---
Contacted [facility]. They will accept pt and transport today. Will transport some time around 10:30. Updated Dr. Zeng and he cannot complete dc in that time as he is seeing pts in the unit. Called [facility], and they will pick her up afternoon. Pt and staff updated.
--- NOTE | 2019-06-24 09:13 | NUR ---
PATIENT RESTING IN BED. DAUGHTER IN ROOM. PATIENT GOES TO USE THE BATHROOM. PATIENT USES WALKER. ORAL CARE DONE. HANDS AND FACE WASHED. PATIENT BACKS TO BED. VITAL SIGNS AND I&O DONE. CALL LIGHT WITHIN REACH. NO OTHER NEEDS AT THIS TIME
--- NOTE | 2019-06-24 09:32 | NUR ---
PT WORKING WITH PHYSICAL THERAPIST AT THIS TIME. DAUGHTER AT BEDSIDE. DENIES DIZZINESS. PATIENT FOUND SITTING AT EDGE OF BED. DID NOT EAT MUCH BREAKFAST D/T NOT LIKING FOOD PROVIDED. OFFERED MORE, BUT DENIED FOR NOW. GRAPE JUICE MIXED WITH CHOLESTYRAMINE POWDER. RIGHT KNEE ALLEVYN IN PLACE ON RIGHT KNEE.
[2019-06-24] MEDS ORDERED: SULFAMETHOXAZO1 EAC1 PO (10:53)
[2019-06-24] MEDS ORDERED: XARELTO10 MG PO (10:54)
[2019-06-24] MEDS ORDERED: METHOTREXATE2.5 MG PO (10:54)
[2019-06-24] MEDS ORDERED: CHOLESTYRAMINE P4 GM PO (10:55)
[2019-06-24] MEDS ORDERED: NORVASC5 MG PO (10:56)
[2019-06-24] MEDS ORDERED: LISINOPRIL10 MG PO (10:56)
[2019-06-24] MEDS ORDERED: OXYCODONE HCL5 MG PO (10:57)
[2019-06-24] MEDS ORDERED: TYLENOL EXTRA500 MG PO (10:58)
[2019-06-24] MEDS ORDERED: TRAZODONE HCL100 MG PO (10:59)
--- NOTE | 2019-06-24 11:50 | NUR ---
PT UP AMBULATING IN GUO WITH Betsy AND HER DAUGHTER BEATA. PT FRIENDLY, SEEMS TO BE WORKING TO IMPROVE MOBILITY. PT IS SCHEDULED TO GO TO [facility] LATER TODAY. EXTENDED A BLESSING, WILL FOLLOW NEEDED
--- NOTE | 2019-06-24 13:57 | NUR ---
[facility] AT [facility]
[2019-06-25] MEDS ORDERED: DULCOLAX10 MG PR (16:40)
[2019-06-25] MEDS ORDERED: MILK OF MA400 MG/5 M PO (16:41)
[2019-06-25] MEDS ORDERED: NORVASC5 MG PO (18:36)
[2019-06-25] MEDS ORDERED: TRAZODONE HCL100 MG PO (18:36)
[2019-06-25] MEDS ORDERED: OXYCODONE HCL5 MG PO (18:36)
[2019-06-25] MEDS ORDERED: BACTRIM DS TAB1 EACH PO (18:36)
== END 2019-06-24 13:05 | DRG 312 ==
LOC: ED 01:24 → MS 01:26 → ED 01:26 → MS 09:53
PROVIDERS: ADMIT Internal Medicine
DX: R55 Syncope and collapse (principal); L03.115 Cellulitis of right lower limb; R26.2 Difficulty in walking, not elsewhere classified; E83.42 Hypomagnesemia; I73.9 Peripheral vascular disease, unspecified; I16.0 Hypertensive urgency; I10 Essential (primary) hypertension; E53.8 Deficiency of other specified B group vitamins; M06.9 Rheumatoid arthritis, unspecified; K21.9 Gastro-esophageal reflux disease without esophagitis; M54.30 Sciatica, unspecified side; G47.00 Insomnia, unspecified; Z87.891 Personal history of nicotine dependence; Z91.81 History of falling; Z96.651 Presence of right artificial knee joint; Z79.899 Other long term (current) drug therapy; Z79.1 Long term (current) use of non-steroidal anti-inflammatories (NSAID); Z79.82 Long term (current) use of aspirin; Z79.891 Long term (current) use of opiate analgesic
CPT/HCPCS: 36415; 70450; 71045; 80048; 80053; 81001; 82533; 83735; 84100; 84439; 84443; 84484; 85025; 93005; 93010; 93306; 93880; 96361; 97110; 97116; 97162; 97166; 97530; 97535; 99285-25; J0696; J3475; J7040; J8610

== ENCOUNTER 2019-06-25 15:28 | Emergency (ER) | payer MEDICARE, BC ==
[~2019-06-25] VITALS: Ht 165.1 cm; Wt 84.4 kg
[~2019-06-25 15:28] MED LIST changes: +LISINOPRIL10 MG PO; +SULFAMETHOXAZO1 EAC1 PO; +TRAZODONE HCL100 MG PO; +XARELTO10 MG PO
[2019-06-25] MEDS ORDERED: DULCOLAX10 MG PR (16:40)
[2019-06-25] MEDS ORDERED: MILK OF MA400 MG/5 M PO (16:41)
[2019-06-25] MEDS ORDERED: BACTRIM DS TAB1 EACH PO (18:36)
[2019-06-25] MEDS ORDERED: NORVASC5 MG PO (18:36)
[2019-06-25] MEDS ORDERED: OXYCODONE HCL5 MG PO (18:36)
[2019-06-25] MEDS ORDERED: TRAZODONE HCL100 MG PO (18:36)
== END 2019-06-25 19:00 | disposition home or self-care (01) ==
LOC: ED 15:28
DX: G89.18 Other acute postprocedural pain (principal); M25.561 Pain in right knee; I10 Essential (primary) hypertension; Z79.899 Other long term (current) drug therapy; Z96.651 Presence of right artificial knee joint; W18.30XA Fall on same level, unspecified, initial encounter
CPT/HCPCS: 73560; 99283-25

== ENCOUNTER 2019-06-25 19:30 | Emergency (ER) | payer MEDICARE, BC ==
[~2019-06-25] VITALS: Ht 165.1 cm; Wt 84.4 kg
[~2019-06-25 19:30] MED LIST changes: +BACTRIM DS TAB1 EACH PO; +DULCOLAX10 MG PR; +MILK OF MA400 MG/5 M PO
== END 2019-06-25 22:23 | disposition home or self-care (01) ==
LOC: ED 19:30
DX: T81.30XA Disruption of wound, unspecified, initial encounter (principal); I10 Essential (primary) hypertension; Z87.891 Personal history of nicotine dependence; Z79.899 Other long term (current) drug therapy
CPT/HCPCS: 99283

== ENCOUNTER 2019-06-27 07:00 | Inpatient (IN) | payer MEDICARE, BC ==
[~2019-06-27] VITALS: Ht 165.1 cm; Wt 84.4 kg
--- NOTE | 2019-06-28 07:18 | OR ---
[facility] [address], [place] [address] Signed DATE OF OPERATION: 06/27/2019 SURGEON: Jamel Thorne MD PREOPERATIVE DIAGNOSIS: Right wound dehiscence. PREOPERATIVE DIAGNOSES: 1. Right wound dehiscence. 2. Patellar tendon rupture. PROCEDURE PERFORMED: Irrigation and debridement right total knee with exchange of poly. AUTOMOBILE OR TRUCK RENTAL DISPATCHER: None. ANESTHESIA: General. BLOOD LOSS: Minimal. IMPLANTS: 4 x 11 polyethylene. BRIEF HISTORY: Jovana is a 78-year-old female who underwent total knee arthroplasty about 10 days ago. She initially did well, however, [facility] when she states that she [facility]. The [facility] stated that she did not, but was lowered to the ground by the DISK GRINDER. On initial presentation to the ER, her wound was clean and dry with no troubles. She subsequently elected to leave the [facility] AMA and go home. She was taken to her vehicle in the parking lot of the ER, where she suffered a ground level fall, opening the wound slightly at the inferior aspect. This was pretty minimally open. However, on subsequent examination by my PA the next day, it did show a broken suture in the wound and about a 1 cm dehiscence. It was then elected to bring her into the hospital next morning for I and D. Due to weather circumstances including heavy snow and ice and her inability to travel, she was transported by ambulance. Risks, benefits, and alternatives of washing out the wound were discussed with her. She elected to proceed. Electronically Signed By: JAMEL THORNE MD 06/28/19 0718 PATIENT NAME: JOVANA CHAIREZ OPERATIVE REPORT DATE OF : 42 REPORT #: [id number] PHYSICIAN: JAMEL THORNE MD PCP: MARIS LORENZANA MD REPORT IS CONFIDENTIAL AND NOT TO BE RELEASED WITHOUT AUTHORIZATION [facility] [address], [place] [address] Signed DESCRIPTION OF PROCEDURE: Once consent was obtained, she was taken to the operating room. After adequate anesthesia, she was placed on operating room table. All downside pressure points were well padded and a hip bump was placed. The old dressing was removed. The zip line was actually intact. The wound was open about a centimeter over about a 4-5 cm length with just some fat in the wound and a couple broken sutures. We removed all the zip line and dressing and prepped and draped the knee in standard sterile fashion using Hibiclens. Once this was accomplished, I removed the sutures and palpated the wound. It was immediately obvious that on the medial side, she had dehisced the deep repair of the MCL. We then elected to open the wound over its entire length for I and D and poly exchange. The wound was opened as was the arthrotomy. The arthrotomy was good, was intact all the way down to the bottom of the patella. It was only dehisced from the bottom of the patella to the tibial insertion. The arthrotomy was opened up all the way and all leftover suture products were removed. It was then immediately obvious that the patellar tendon had ruptured in its distal 3rd. There was still about 1.5 cm attached to the tibia and about 2-2.5 cm to the patella. We removed all devitalized tissue sharply, washed out the knee with 2 L of dilute iodine solution after removing the polyethylene. We then scrubbed all metal and plastic surfaces using hydrogen peroxide soaked sponge getting into all the crevices as far posterior as we could. Once this was accomplished, then the knee was washed out with further 2 L of normal saline under pulse lavage. The new polyethylene was then positioned to maintain the space. It was elected at this point not to repair the patellar tendon due to the contamination from the wound dehiscence, although I think that is minimal given that it was only open 1 cm. We then elected to bring her back on Sunday for patellar tendon repair and repeat washout. We then closed the arthrotomy using #1 PDS. The patellar tendon was tacked back into position using the #1 PDS. The subcutaneous tissue was closed using #1 Stratafix, the skin with franco. She was then dressed with Allevyn dressing and a bulky Salas compression dressing. She was awakened and taken to the recovery room in satisfactory condition. All sponge, needle, and instrument counts were correct. Jamel Thorne MD BA/MODL /[id number] Electronically Signed By: JAMEL THORNE MD 06/28/19 0718 PATIENT NAME: JOVANA CHAIREZ OPERATIVE REPORT DATE OF : 42 REPORT #: [id number] PHYSICIAN: JAMEL THORNE MD PCP: MARIS LORENZANA MD REPORT IS CONFIDENTIAL AND NOT TO BE RELEASED WITHOUT AUTHORIZATION [facility] [address] [place] [id number] Signed Copies: ~ Electronically Signed By: JAMEL THORNE MD 06/28/19 0718 PATIENT NAME: JOVANA CHAIREZ OPERATIVE REPORT DATE OF : 42 REPORT #: [id number] PHYSICIAN: JAMEL THORNE MD PCP: MARIS LORENZANA MD REPORT IS CONFIDENTIAL AND NOT TO BE RELEASED WITHOUT AUTHORIZATION
== END 2019-07-01 15:20 | disposition short-term general hospital (02) | DRG 909 ==
LOC: OPS 07:00 → DS 07:00 → OPS 08:00 → MS 08:00 → EDSTATUS 08:00 → OPS 10:50 → MS 10:50
PROVIDERS: ADMIT Specialist
PROC: 0SUV09Z Supplement Right Knee Joint, Tibial Surface with Liner, Open Approach (ICD-10-PCS; 2019-06-27)
PROC: 02HV33Z Insertion of Infusion Device into Superior Vena Cava, Percutaneous Approach (ICD-10-PCS; 2019-06-27)
PROC: 3E0T3BZ Introduction of Anesthetic Agent into Peripheral Nerves and Plexi, Percutaneous Approach (ICD-10-PCS; 2019-06-27)
PROC: 3E0T33Z Introduction of Anti-inflammatory into Peripheral Nerves and Plexi, Percutaneous Approach (ICD-10-PCS; 2019-06-27)
PROC: 0SPC09Z Removal of Liner from Right Knee Joint, Open Approach (ICD-10-PCS; principal; 2019-06-27 08:00)
DX: T81.32XA Disruption of internal operation (surgical) wound, not elsewhere classified, initial encounter (principal); S76.811A Strain of other specified muscles, fascia and tendons at thigh level, right thigh, initial encounter; Z96.651 Presence of right artificial knee joint; I10 Essential (primary) hypertension; I73.9 Peripheral vascular disease, unspecified; M06.9 Rheumatoid arthritis, unspecified; G62.9 Polyneuropathy, unspecified; G47.00 Insomnia, unspecified; K52.9 Noninfective gastroenteritis and colitis, unspecified; E87.5 Hyperkalemia; V58.4XXA Person boarding or alighting a pick-up truck or van injured in noncollision transport accident, initial encounter; Z79.899 Other long term (current) drug therapy; Z79.891 Long term (current) use of opiate analgesic
CPT/HCPCS: 36569; 71045; 80048; 80053; 85025; 97110; 97116; 97163; C1751; C1776; J0330; J0360; J0690; J1100; J1885; J2250; J2300; J2405; J2704; J2795; J3010; J3480; J7030; J7121

== ENCOUNTER 2019-10-14 13:02 | Emergency (ER) | payer MEDICARE ==
[~2019-10-14] VITALS: Ht 165.1 cm; Wt 77.1 kg
--- OUTSIDE RECORDS SUMMARY | ~2019-10-14 | XMS | Clinical Summary ---
Demographics + + + | Address | [address] | | | [place] [address] | + + + | Home Phone | | + + + | Preferred Language | Unknown | + + + | Marital Status | | + + + | Buddhist Affiliation | Unknown | + + + | Race | Unknown | + + + | Ethnic Group | Unknown | + + + Author + + + | Author | [facility] | | | and [place] | + + + | Organization | [facility] | | | and [place] | + + + | Address | Unknown | + + + | Phone | Unavailable | + + + Care Team Providers + +------+ + | Care Deputy Sheriff Name | Role | Phone | + +------+ + | Vinh Galdamez MD | PCP | | + +------+ + Allergies Not on File Medications Not on file Active Problems Not on file Social History + +-------+ +--------+------+ | Tobacco Use | Types | Packs/Day | Years | Date | | | | | Used | | + +-------+ +--------+------+ | Never Assessed | | | | | + +-------+ +--------+------+ + + + | Sex Assigned at | Date Recorded | | | | + + + | Not on file | | + + + + + + + | Job Start Date | Occupation | Industry | + + + + | Not on file | Not on file | Not on file | + + + + + + + + | Travel History | Travel Start | Travel End | + + + + + + | No recent travel history available. | + + Last Filed Vital Signs Not on file Plan of Treatment +--------+---------+ + + + | Date | Type | Specialty | Care Team | Description | +--------+---------+ + + + | 12/31/ | Office | Cardiology | Karina Vazquez DO | | | 2019 | Visit | | [address] | | | | | | [place] | | | | | | [phone] | | | | | | | | +--------+---------+ + + + + + + + + | Health Maintenance | Due Date | Last Done | Comments | + + + + + | Vaccine: | | | | | Dtap/Tdap/Td (1 - | 3 | | | | Tdap) | | | | + + + + + | Vaccine: Zoster (1 | | | | | of 2) | 2 | | | + + + + + | Breast Cancer | | | | | Screening | 7 | | | + + + + + | Vaccine: | | | | | Pneumococcal 65+ (1 | 7 | | | | of 2 - PCV13) | | | | + + + + + | Vaccine: Influenza | | | | | (Season Ended) | 0 | | | + + + + + Results Not on filefrom Last 3 Months Insurance + +--------+ +--------+ +---------+--------+ | Payer | Benefi | Subscriber | Effect | Phone | Address | Type | | | t Plan | ID | dinora | | | | | | / | | Dates | | | | | | Group | | | | | | + +--------+ +--------+ +---------+--------+ | MEDICARE | MEDICA | [id number] | 07/12/19 | [phone] | | Medica | | | RE | | 07-Pre | 5 | | re | | | PART A | | sent | | | | | | AND B | | | | | | + +--------+ +--------+ +---------+--------+ | BCBS | BCBS | [id number] | 06/11/19 | | | Indemn | | | OOS | 1 | 16-Pre | | | ity | | | MDCR | | sent | | | | | | SUPPL | | | | | | + +--------+ +--------+ +---------+--------+ + +--------+ +--------+ + + | Guarantor Name | Accoun | Relation to | Date | Phone | Billing Address | | | t Type | Patient | of | | | | | | | | | | + +--------+ +--------+ + + | Briana Wilkes | Person | Self [birth year] [address] | | | al/Fam [birth year] | 1941 | [phone] | [place] [address] | | | millicent | | | 5 (Home) | | + +--------+ +--------+ + + Advance Directives + + + + + | Type | Date Recorded | Patient | Explanation | | | | Patternmaker Apprentice Wood | | + + + + + | Power of | | | | | Autopsy Assistant | | | | + + + + + | Advance | | | | | Directive | | | | + + + + +"
--- OUTSIDE RECORDS SUMMARY | ~2019-10-14 | XMS | Clinical Summary ---
Demographics + + + | Address | [address] | | | [place] [address] | + + + | Home Phone | | + + + | Preferred Language | Unknown | + + + | Marital Status | | + + + | Buddhist Affiliation | Unknown | + + + | Race | Unknown | + + + | Ethnic Group | Unknown | + + + Author + + + | Author | [facility] | | | and [place] | + + + | Organization | [facility] | | | and [place] | + + + | Address | Unknown | + + + | Phone | Unavailable | + + + Care Team Providers + +------+ + | Care General Supervisor Name | Role | Phone | + [...] | | | | | [place] | | | | | | [phone] | | | | | | | [...] +--------+ +---------+--------+ | MEDICARE | MEDICA | [id number] | 07/12/19 | [phone] | | Medica | | | RE | | 07-Pre | 5 | | re | | | PART A | | sent | | | | | | AND B | | | | | | + +--------+ +--------+ +---------+--------+ | BCBS | BCBS | [id number] | 06/11/19 | | | Indemn | [...] | Self [birth year] [address] | | | al/Fam | | 1941 | [phone] | [place] [address] | | | millicent | | | 5 (Home) | | + +--------+ +--------+ + + Advance Directives + + + + + | Type | Date Recorded | Patient | Explanation | | | | Truck Rental Manager | | + + + + + | Power of | | | | | Box Office Attendant | | | | + + + + + | Advance | | | | | Directive | | | | + + + + +"
[2019-10-14] MEDS ORDERED: ELIQUIS5 MG PO (13:20)
== END 2019-10-14 15:06 | disposition home or self-care (01) ==
LOC: ED 13:02
DX: S61.411A Laceration without foreign body of right hand, initial encounter (principal); S51.811A Laceration without foreign body of right forearm, initial encounter; S60.211A Contusion of right wrist, initial encounter; S60.512A Abrasion of left hand, initial encounter; I10 Essential (primary) hypertension; M06.9 Rheumatoid arthritis, unspecified; I48.91 Unspecified atrial fibrillation; Z87.891 Personal history of nicotine dependence; Z79.899 Other long term (current) drug therapy; W18.30XA Fall on same level, unspecified, initial encounter
CPT/HCPCS: 73110; 73130; 99283-25

== ENCOUNTER 2019-10-30 20:40 | Emergency (ER) | payer MEDICARE, BC ==
[~2019-10-30] VITALS: Ht 165.1 cm; Wt 77.1 kg
--- OUTSIDE RECORDS SUMMARY | ~2019-10-30 | XMS | Clinical Summary ---
Demographics + + + | Address | [address] | | | [place] [address] | + + + | Home Phone | | + + + | Preferred Language | Unknown | + + + | Marital Status | | + + + | Presybeterian Affiliation | Unknown | + + + | Race | Unknown | + + + | Ethnic Group | Unknown | + + + Author + + + | Author | [facility] | | | and [place] | + + + | Organization | [facility] | | | and [place] | + + + | Address | Unknown | + + + | Phone | Unavailable | + + + Care Team Providers + +------+ + | Care Counter Intelligence Name | Role | Phone | + [...] Description | +--------+---------+ + + + | 11/04/ | Office | Vascular Surgery | Nickolas Flores MD | | | 2019 | Visit | | [address] | | | | | | [place] | | | | | | [place] [address] | | | | | | [phone] | | | | | | | | +--------+---------+ + + + | 12/31/ | Office | Cardiology | Karina Vazquez DO | | | 2020 | Visit | | [address] | | | | | | [place] | | | | | | [address] | | | | | | | [...] | + + + + + | Adult Annual | | | | | Wellness Visit | 0 | | | + + [...] +--------+ +---------+--------+ | MEDICARE | MEDICA | [id number] | 07/12/19 | [phone] | | Medica | | | RE | | 07-Pre | 5 | | re | | | PART A | | sent | | | | | | AND B | | | | | | + +--------+ +--------+ +---------+--------+ | BCBS | BCBS | [id number] | 06/11/19 | | | Indemn | [...] Person | Self [birth year] | [address] | | | al/Fam | | 1941 | [phone] | [place] [address] | | | millicent | | | 5 (Home) | | + +--------+ +--------+ + + Advance Directives + + + + + | Type | Date Recorded | Patient | Explanation | | | | Director Telehealth | | + + + + + | Power of | | | | | Cigarette Making Machine Catcher | | | | + + + + + | Advance | | | | | Directive | | | | + + + + +"
--- OUTSIDE RECORDS SUMMARY | ~2019-10-30 | XMS | Clinical Summary ---
Demographics + + + | Address | [address] | | | [place] [address] | + + + | Home Phone | | + + + | Preferred Language | Unknown | + + + | Marital Status | | + + + | Nondenominational Affiliation | Unknown | + + + | Race | Unknown | + + + | Ethnic Group | Unknown | + + + Author + + + | Author | [facility] | | | and [place] | + + + | Organization | [facility] | | | and [place] | + + + | Address | Unknown | + + + | Phone | Unavailable | + + + Care Team Providers + +------+ + | Care Textile Coating Machine Operator Name | Role | Phone | + [...] | | | | | | [place] | | | | | | [place] [address] | | | | | | [phone] | | | | | | | | +--------+---------+ + + + | 12/31/ | Office | Cardiology | Karina Vazquez DO | | | 2020 | Visit | | [address] | | | | | | [place] | | | | | | [address] | | | | | | | [...] +--------+ +---------+--------+ | MEDICARE | MEDICA | [id number] | 07/12/19 | [phone] | | Medica | | | RE | | 07-Pre | 5 | | re | | | PART A | | sent | | | | | | AND B | | | | | | + +--------+ +--------+ +---------+--------+ | BCBS | BCBS | [id number] | 06/11/19 | | | Indemn | [...] | 1941 | [phone] | [place] [address] | | | millicent | | | 5 (Home) | | + +--------+ +--------+ + + Advance Directives + + + + + | Type | Date Recorded | Patient | Explanation | | | | Pie Filler | | + + + + + | Power of | | | | | Bus Analyst | | | | + + + + + | Advance | | | | | Directive | | | | + + + + +"
[~2019-10-30 20:40] MED LIST changes: +ELIQUIS5 MG PO
--- NOTE | 2019-10-31 06:41 | EKG ---
[facility] [address] [place], [place] [address] Signed Normal sinus rhythm Nonspecific ST and T wave abnormality Abnormal ECG When compared with ECG of 20-JUN-2019 01:36, No significant change was found Confirmed by KRIS RASHEED MD ([id number]) on 10/31/2019 6:41:40 AM Electronically Signed By: KRIS RASHEED MD 10/31/19 0641 PATIENT NAME: JOVANA CHAIREZ Electrocardiogram DATE OF : 42 PHYSICIAN: KRIS RASHEED MD REPORT #: [id number] REPORT IS CONFIDENTIAL AND NOT TO BE RELEASED WITHOUT AUTHORIZATION
== END 2019-10-30 23:38 | disposition home or self-care (01) ==
LOC: ED 20:40
PROC: 0T9B70Z Drainage of Bladder with Drainage Device, Via Natural or Artificial Opening (ICD-10-PCS; principal; 2019-10-30)
DX: R06.00 Dyspnea, unspecified (principal); R41.0 Disorientation, unspecified; I10 Essential (primary) hypertension; I48.91 Unspecified atrial fibrillation; Z87.891 Personal history of nicotine dependence; Z79.899 Other long term (current) drug therapy; Z79.01 Long term (current) use of anticoagulants
CPT/HCPCS: 51701; 70450; 71045; 80053; 81001; 83735; 83880; 84484; 85025; 85610; 85730; 93005; 93010; 99285-25

== ENCOUNTER 2019-11-24 07:35 | Day surgery (SDC) | payer MEDICARE, BC ==
[~2019-11-24] VITALS: Ht 165.1 cm; Wt 77.1 kg
--- NOTE | 2019-11-24 12:15 | NUR ---
11/24/19 1215 Echo Michaels 1155 PT ARRIVED IN PACU NON RESPONSIVE TO NOXIOUS STIMULI WITH OPA IN PLACE. BP 89/31. ANESTHESIA GAVE MEDICATION TO RAISE BP. 1200 BP 128/75. 1206 PT REACTIVE. OPA REMOVED. 1210 ICE AND ELEVATION TO R KNEE. NO C/O'S.
[2019-11-24] MEDS ORDERED: HYDROCODON-ACE1 EA11 PO (14:35)
--- NOTE | 2019-11-24 14:59 | NUR ---
1420) PATIENT WALKED DOWN GUO WITH WALKER, GATE BELT AND RN TED ASSIST. PATIENT HAD NO PROBLEM WALKING.
--- NOTE | 2019-11-24 15:51 | OR ---
[facility] [address], [place] [address] Signed DATE OF OPERATION: 11/24/2019 SURGEON: Jamel Thorne MD PREOPERATIVE DIAGNOSIS: Open wound dehiscence, left knee, status post patellar tendon reconstruction. POSTOPERATIVE DIAGNOSIS: Open wound dehiscence, left knee, status post patellar tendon reconstruction. PROCEDURE PERFORMED: Excision of wound margins and deep subcu tissue. BLOCKER AND CUTTER CONTACT LENS: VÍCTOR Webster. ANESTHESIA: General. BLOOD LOSS: 50 mL. TOURNIQUET TIME: Zero. BRIEF HISTORY: Jovana is a 79-year-old female, who underwent a total knee arthroplasty in June. She subsequently developed several falls eventually opening her wound or rupturing her patellar tendon. She was washed out and then referred to [facility] where she underwent a patellar reconstruction and healed uneventfully except for small portion of her wound in the inferior 3rd. This eventually opened up last week and showed no evidence of healing. We discussed sending her back to [facility], which she refused. I elected to bring her to the operating room today for excision of that area. Risks and benefits of operative treatment were discussed with her and she elected to proceed. DESCRIPTION OF PROCEDURE: Once consent was obtained, she was taken to the operating room. After adequate anesthesia, she was placed on operating table, all downside pressure points were well padded. The leg was prepped and draped in a standard sterile fashion. The underlying hole was then marked out with this was then incised longitudinally. The Electronically Signed By: JAMEL THORNE MD 11/24/19 1551 PATIENT NAME: JOVANA CHAIREZ OPERATIVE REPORT DATE OF : 42 REPORT #: [id number] PHYSICIAN: JAMEL THORNE MD PCP: MARIS LORENZANA MD REPORT IS CONFIDENTIAL AND NOT TO BE RELEASED WITHOUT AUTHORIZATION [facility] [address] [place] [id number] Signed depth of the actual hole was just into the subcu tissue to the graft. We were able to get all the way around it and excised its base with good clean tissue. This area was about a cm and half lateral to the incision. We elected to leave that soft tissue bridge because it had excellent vascularity. We did not undermine that side, but did undermine the skin laterally to mobilize it to closed the wound, it was closed with absolutely no tension. The sutures were placed medial to the other incision to allow tension to be transferred to that side. The wound was copiously irrigated with antibiotic solution and then closed with 2-0 Monocryl and 2-0 nylon. The skin margins were flushed and pink at the end of the procedure. The wounds were then dressed with a HOA wound VAC dressing. She was placed back into a brace. She tolerated this well. All sponge, needle, and instrument counts were correct. Jamel Thorne MD BA/MUMTAZ /[id number] Copies: ~ Electronically Signed By: JAMEL THOREN MD 11/24/19 1551 PATIENT NAME: JOVANA CHAIREZ OPERATIVE REPORT DATE OF : 42 REPORT #: [id number] PHYSICIAN: JAMEL THORNE MD PCP: MARIS LORENZANA MD REPORT IS CONFIDENTIAL AND NOT TO BE RELEASED WITHOUT AUTHORIZATION
== END 2019-11-24 14:40 | disposition home or self-care (01) ==
LOC: DS 07:35
PROVIDERS: Specialist
PROC: 0JQP0ZZ Repair Left Lower Leg Subcutaneous Tissue and Fascia, Open Approach (ICD-10-PCS; principal; 2019-11-24 08:45)
DX: T81.30XA Disruption of wound, unspecified, initial encounter (principal); I10 Essential (primary) hypertension; E11.9 Type 2 diabetes mellitus without complications; Z79.899 Other long term (current) drug therapy; Z98.890 Other specified postprocedural states
CPT/HCPCS: J0690; J1100; J1885; J2001; J2370; J2405; J2704; J3010; J7121

== ENCOUNTER 2020-08-19 14:40 | Emergency (ER) | payer MEDICARE, BC ==
[~2020-08-19] VITALS: Ht 165.1 cm; Wt 77.1 kg
[~2020-08-19 14:40] MED LIST changes: +HYDROCODON-ACE1 EA11 PO
[2020-08-19] MEDS ORDERED: AMLODIPINE BESY10 MG PO (14:58)
--- NOTE | 2020-08-21 19:03 | EKG ---
[facility] [address] [facility] [place], [place] [address] Signed Normal sinus rhythm Normal ECG When compared with ECG of 21-NOV-2019 10:15, Nonspecific T wave abnormality, improved in Anterior leads Confirmed by YVETTE DUNCAN DO ([id number]) on 08/21/2020 7:03:36 PM Electronically Signed By: YVETTE DUNCAN DO 08/21/20 190 PATIENT NAME: JOVANA CHAIREZ Electrocardiogram DATE OF : 42 PHYSICIAN: YVETTE DUNCAN DO REPORT #: [id number] REPORT IS CONFIDENTIAL AND NOT TO BE RELEASED WITHOUT AUTHORIZATION
== END 2020-08-19 15:37 | disposition home or self-care (01) ==
LOC: ED 14:40
DX: R55 Syncope and collapse (principal); I10 Essential (primary) hypertension; I48.91 Unspecified atrial fibrillation; Z87.891 Personal history of nicotine dependence; Z79.899 Other long term (current) drug therapy
CPT/HCPCS: 80048; 85025; 93005; 93010; 99284-25

== ENCOUNTER 2020-11-13 16:36 | Inpatient (IN) | payer MEDICARE, BC ==
[~2020-11-13] VITALS: Ht 165.1 cm; Wt 78.8 kg
[~2020-11-13 16:36] MED LIST changes: +AMLODIPINE BESY10 MG PO
[2020-11-13] MEDS ORDERED: LISINOPRIL5 MG PO (19:06)
--- NOTE | 2020-11-13 20:38 | NUR ---
PT ARRIVES TO FLOOR VIA STRETCHER. PULLED OVER TO BED WITH ASSISTANCE. PT REQUESTS TO USE BEDPAN, UNSUCCESSFUL AT VOIDING AT THIS TIME. ATTENDS PLACED FOR DRIBBLING INCONTINENCE. IV FLUSHED, WNL. EDUCATION PROVIDED REGARDING POC FOR THIS SHIFT, ORIENTATION TO ROOM, CALL LIGHT USE. PT STATES UNDERSTANDING. WHITEBOARD UPDATED. CALL LIGHT IN REACH. ROOM IN VIEW OF RN STATION.
--- NOTE | 2020-11-13 21:41 | NUR ---
PT REPORT BACK PAIN THAT IS RELATED TO HER CURRENT FALLS AT HOME. DR. MARTINEZ CALL FOR PAIN RELIEVER. NEW TELEPHONE ORDERS RECEIVED. VERIFIED WITH READ BACK METHOD.
--- NOTE | 2020-11-13 22:20 | NUR ---
ADMISSION ASSESSMENT COMPLETE. SCHEDULED MEDS ADMINISTERED PER EMAR. LIDOCAINE PATCH PLACED ON LOWER LEFT BACK. PT UP TO BSC WITH 2PA TO VOID 450 ML CLOUDY URINE. STAFF ASSIST WITH JOSE A CARE. BACK TO BED, BOBO WELL. PT RELUCTANT TO GET OUT OF BED TO VOID INITIALLY, ASSURED PT STAFF WOULD ASSIST. PT AGREEABLE. SCATTERED BRUISES FROM PREVIOUS FALLS AT HOME NOTED ON BUE. BLE EDEMA. PT DENIES QUESTIONS OR CONCERNS. PT ORIENTED TO ROOM AND NURSE CALL LIGHT. NO FURTHER NEEDS. CALL LIGHT IN REACH.
--- NOTE | 2020-11-14 00:31 | NUR ---
CALL LIGHT ANSWERED. PT UP TO BSC WITH 2PA AND FWW. GAIT STEADY. JOSE A CARE DONE BY STAFF. BACK TO BED, BOBO WELL. NO FURTHER NEEDS. CALL LIGHT IN REACH.
--- NOTE | 2020-11-14 01:29 | NUR ---
CALL LIGHT ANSWERED. PT UP TO BSC TO VOID 300 ML CLOUDY URINE WITH 2PA AND FWW. STAFF ASSIST WITH JOSE A CARE. BACK TO BED, BOBO WELL. VS AND I&O COMPLETE. CALL LIGHT IN REACH.
--- NOTE | 2020-11-14 02:48 | NUR ---
CALL LIGHT ANSWERED. PT UP TO BSC WITH 1PA AND FWW TO VOID. GAIT WEAK BUT STEADY. STAFF ASSIST WITH JOSE A CARE. BACK TO BED, BOBO WELL. PT ABLE TO REPOSITION SELF IN BED USING TRAPEZE. NO FURTHER NEEDS. CALL LIGTH IN REACH.
--- NOTE | 2020-11-14 03:42 | NUR ---
CALL LIGHT ON. SBA TO BSC AND BACK TO BED. pt REQUIRED VERBAL CUEING TO TRANSFER SAFELY. PROVIDED FRESH WATER. pt RESTING IN BED. CALL LIGHT WITHIN REACH.
--- NOTE | 2020-11-14 04:56 | NUR ---
PT UP TO BSC WITH 1PA AND FWW TO VOID. JOSE A CARE DONE BY STAFF. BACK TO BED, BOBO WELL. VS AND I&O COMPLETE. DENIES FURTHER NEEDS. CALL LIGHT IN REACH.
--- NOTE | 2020-11-14 06:10 | NUR ---
PT UP TO BSC WITH 1PA AND FWW. GAIT STEADY. STAFF ASSIST WITH JOSE A CARE. BACK TO BED, BOBO WELL. SCHEDULED MEDS ADMINISTERED. NO FURTHER NEEDS AT THIS TIME.
[2020-11-14] MEDS ORDERED: HYDROCODON-ACE1 EA11 PO (07:13)
--- NOTE | 2020-11-14 08:47 | NUR ---
Patient sitting up in chair, respirations even and non labored. Patient has no distress at this time. Iv patent at this time. Patient provided with warm blanket. No needs at this time. Call light wihin reach.
--- NOTE | 2020-11-14 13:07 | NUR ---
Assisted patient to bedside commode; 1PA with walker, tolerated fair. Patient reports bilat knee pain and lower back pain. Lidocaine patch intact to lower back. Patient assisted back to bed. Personal supplies and call light within reach.
--- NOTE | 2020-11-14 15:07 | NUR ---
Patient resting in bed, respirations even and non labored. Patient has no needs at this time. Visitor at bedside. Personal supplies and call light within reach.
--- NOTE | 2020-11-14 16:19 | NUR ---
[place] 7.5/325mg po admin for reports of 6/10 lower back pain.
--- NOTE | 2020-11-14 17:44 | NUR ---
Patient assisted from chair to bed; standy assist with walker. Patient reports her back pain has improved. Patient tolerated 100% of dinner. No current needs. Personal supplies and call light within reach.
--- NOTE | 2020-11-14 19:25 | NUR ---
BEDSIDE REPORT RECEIVED FROM OFFGOING RNKERON. PT DENIES NEEDS AT THIS TIME. CALL LIGHT IN REACH.
--- NOTE | 2020-11-14 20:11 | EKG ---
[facility] [address] [facility] [place] [address] Signed Normal sinus rhythm Normal ECG When compared with ECG of 19-AUG-2020 14:32, Inverted T waves have replaced nonspecific T wave abnormality in Anterior leads Confirmed by RUBY MARTINEZ MD ([id number]) on 11/14/2020 8:11:39 PM Electronically Signed By: RUBY MARTINEZ MD 11/14/202010 PATIENT NAME: JOVANA CHAIREZ Electrocardiogram DATE OF : 42 PHYSICIAN: RUBY MARTINEZ MD REPORT #: [id number] REPORT IS CONFIDENTIAL AND NOT TO BE RELEASED WITHOUT AUTHORIZATION
--- NOTE | 2020-11-14 20:45 | NUR ---
PT UTILIZES CALL LIGHT, REQUESTS TO USE THE BATHROOM. PT UP TO BSC WITH SBA AND FWW. TOLERATED WELL. ASSESSMENT COMPLETE. PT STATES THAT PAIN IS BEGINNING TO INCREASE, WOULD LIKE A PAIN PILL WHEN AVAILABLE. PT DENIES SOB OR NAUSEA. IV SITE FLUSHED, WNL. EDEMA NOTED TO BLE, 2+. PT WOULD LIKE PILLOW UNDER FEET REMOVED AT THIS TIME. PT DENIES FURTHER NEEDS AT THIS TIEM. CALL LIGHT IN REACH.
--- NOTE | 2020-11-14 23:19 | NUR ---
CALL LIGHT ANSWERED. SBA TO BEDSIDE COMMODE. PATIENT VOIDED 400ML. PATIENT IS BACK IN BED. NO OTHER NEEDS AT THIS TIME. CALL LIGHT WITHIN REACH.
--- NOTE | 2020-11-15 01:08 | NUR ---
ANSWERED CALL LIGHT. SBA TO BEDSIDE COMMODE. NO OTHER NEEDS. PATIENT IS ABCK IN BED. CALL LIGHT WITHIN REACH.
--- NOTE | 2020-11-15 04:47 | NUR ---
PT ASSESSMENT COMPLETE. STEEP TENDER TO ROOM FOR IV PUMP ALARMING. PT STATES THAT SHE HAS SLEPT WELL. DENIES PAIN, NAUSEA, OR SOB AT THIS TIME. BLE WITH 2+ EDEMA, TENDER TO TOUCH. PT DECLINES TO ELEVATE BLE AT THIS TIME. PT NOW STATING THAT SHE HAS CHRONIC NUMBNESS IN ALL EXTREMTIES, PT PREVIOUSLY ENDORES NUMBNESS TO BUE ONLY. IV FLUSHED, POSITIONAL BUT PATENT. PT DENIES FURTHER NEEDS. CALL LIGHT IN REACH.
--- NOTE | 2020-11-15 07:53 | NUR ---
AM CARE DONE AND GAVE PATIENT SUPPLIES FOR ORAL CARE. PATIENT STATES SHE CANT WALK TO GET UP IN CHAIR. NOTHING ELSE NEEDED AT THIS TIME
--- NOTE | 2020-11-15 10:02 | NUR ---
Patient reports her pain is 6/10 in her lower back and knee areas. One tab [place] 7.5/325mg po admin for this pain. OT working with patient at this time.
--- NOTE | 2020-11-15 10:10 | NUR ---
SPOKE WITH PATIENT IN ROOM. PATIENT IN BED, VERY VERY TEARFUL THROUGH ASSESSMENT. SHE LIVES WITH SPOUSE NARESH, HE IS 84 AND HIS MOBILITY IS CHALLENGED ALSO. SHE NO LONGER DRIVES, DOES DRIVING. THEY HAVE A RAMP INTO HOME, BUT IT HAS A LIP THAT SHE KNOW CANNOT STEP OVER. SHE HAS NOT LEFT THE HOME FOR MANY MONTHS. THEY HAVE FAMILY HERE, DAUGHTER IS CURRENTLY VERY ILL WITH CANCER. SHE WOULD LIKE HER GRANDDAUGHTER PLACED CONTACT INSTEAD. FADY [phone]. PATIENT DENIES PROBLEMS PAYING FOR MEDS/FOOD/UTILITIES. SHE STATES THEY WOULD HAVE NO MONEY THOUGH FOR HIRING CARE AT HOME OR PAYING FOR ASSISTED LIVING. SHE STATES HER FAMILY WORKS AND HAVE "NO TIME". THEY HAVE A WALK-IN SHOWER WITH SHOWER DOORS THAT DO NOT OPEN VERY WIDE. SHE STATES SHE CANNOT GET INTO IT ALONE. HER HELPS HER IN, THEN HE HAS TO PUT CHAIR IN. SHE CAN ONLY REACH HER HEAD TO TORSO, HE HAS TO DO LEGS/BACK/PRIVATES FOR HER. SHE STATES HE GETS ANGRY WITH HER DAILY NOW, "HE IS SO FRUSTRATED WITH ME". SHE STATES THEY TOOK DOOR OFF BATHROOM BECAUSE SHE FELL IN THERE AND BLOCKED THE DOOR A FEW TIMES. SHE STATES SHE CANNOT DO HOUSEWORK, LAUNDRY, COOKING. SHE STATES HER SHUFFLES AND CANNOT TO THINGS LIKE HE USED TO, STATES "HE TRIES, BUT GETS MAD". SHE STATES SHE HOPES SHE CAN GO TO "A FDC" TO GET SOME HELP. WE DISCUSSED OBSERVATION VS INPATIENT. DISCUSSED COVERAGE WITH MEDICARE AND HER SUPPLEMENT. DISCUSSED THAT THEY COULD POSSIBLY USE A [employer] EVAL TO SEE IF THEY QUALIFY FOR HELP WITH SOME CAREGIVERS. SHE IS OPEN TO THAT. SHE WAS THINKING SHE COULD MOVE TO ASSISTED LIVING, BUT DID NOT KNOW MEDICARE DOES NOT PAY FOR THIS. PATIENT STATES SHE HAS NOT GONE TO THE DR'S OFFICE BECAUSE "I CANNOT EVEN GET OUT OF THE HOUSE". DISCUSSED SHE SHOULD STILL CALL THEM AND LET THEM KNOW SO THEY CAN FIGURE OUT A WAY TO HELP HER. PATIENT IS VERY TEARFUL THROUGH THE WHOLE VISIT.
--- NOTE | 2020-11-15 10:33 | NUR ---
PATIENT IN BED WATCHING TV. VITALS AND I&O'S CHARTED. FRESH WATER GIVEN. CALL LIGHT IN REACH. NO FURTHER NEEDS AT THIS TIME.
--- NOTE | 2020-11-15 12:17 | NUR ---
Assisted patient to bedside commode and back to bed. Patient reports she still has urinary urgency/frequency. Back and knee pain reported to be improving with pain medication. No needs at this time. Personal supplies and call light within reach.
--- NOTE | 2020-11-15 12:26 | NUR ---
ROUNDING PATIENT UP IN BED EATING LUNCH. WATER REFRESHED NOTHING ELSE NEEDED AT THIS TIME
--- NOTE | 2020-11-15 14:02 | NUR ---
PT BACK FROM MRI RESTING IN BED IS PRESENT
--- NOTE | 2020-11-15 14:48 | NUR ---
IN ROOM. PATIENTS VITALS AND I&O'S CHARTED. CALL LIGHT IN REACH. NOTHING NEEDED AT THIS TIME.
--- NOTE | 2020-11-15 15:25 | NUR ---
PT UP TO BSC, THEN RETURNS TO RESTING IN BED. DENIES DISCOMFORTS OR NEEDS
--- NOTE | 2020-11-15 16:40 | NUR ---
PT REMAINS RESTING IN BED AFTER P/T SESSION. DENIES DISCOMFORTS OR NEEDS OF.
--- NOTE | 2020-11-15 18:48 | NUR ---
SPINAL TAP PERFORMED, WELL TOLERATED BY PT. SHE IS RESTING FLAT NOW VERBLAIZES UNDERSTANDING. DENIES NEEDS AT THIS TIME CALL LIGHT IN HAND
--- NOTE | 2020-11-15 19:08 | NUR ---
PATIENTS VITALS AND I&O'S CHARTED. CALL LIGHT IN REACH
--- NOTE | 2020-11-15 19:15 | NUR ---
CHRISTYORT RECEIVED FROM OFFGOING RNMAYCOL.
--- NOTE | 2020-11-15 20:45 | NUR ---
PT CALLED, NEEDED BATHROOM. PT ON PHONE TO THOUGHT THIS RN WAS AT HER HOME, DIDN'T KNOW WHERE SHE WAS. SAID SHE HAD "WOKE UP" AND DIDN'T KNOW. WAS CONCERNED PER PATIENT. USED BEDPAN, COMPLAINT OF SL HEADACHE, FACE FLUSHED, ROOM WARM @ 73.
--- NOTE | 2020-11-15 22:15 | NUR ---
PT ASSESSMENT COMPLETE. PT RESTING IN BED AWAKE. LAUGHS ABOUT EARLIER FORGETTING WHERE SHE WAS AND CALLING HER HUSBANDS CELL PHONE TO COME AND HELP HER. PT AGREES THAT SHE HAS HAD A BUSY DAY. PT REPORTS PAIN 6/10 TO BACK AND LEGS. DENIES SOB OR NAUSEA. PRN PAIN MEDCIATION ADMINISTERED, SEE EMAR. IV SITE FLUSHED, PATENT, WNL. BLE WITH 2+ EDEMA. PT DECLINES TO ELEVATE LEGS AT THIS TIME. REPORTS THAT THEY ARE TENDER TO TOUCH, REPORTS NUMBNESS TO ALL EXTREMITIES. PT REQUESTS TO USE THE BEDPAN, PROVIDED AND ASSISTED BACK OFF. PT TOLERATED ROLLING WITH MINIMAL ASSISTANCE. PT PROVIDED WITH GASTROGRAFIN 15 ML ORDERED. PT STATES UNDERSTANDING, AND IS DRINKING IT APPROPRIATELY. PT ASKS WHEN I WILL BRING HER PAIN PILL. REMINDED PT THAT SHE ALREADY TOOK THIS SHE STATES SHE REMEMBERS. DENIES FURTHER NEEDS AT THIS TIME. CALL LIGHT IN REACH.
--- NOTE | 2020-11-15 22:30 | NUR ---
CALL LIGHT ANSWERED. ASSISTED PATIENT USE THE BED HIGH. WARM BLANKET PROVIDED. NO OTHER NEEDS AT THIS TIME.
--- NOTE | 2020-11-16 00:05 | NUR ---
CALL LIGHT ANSWERED. ASSISTED TO USE BED HIGH. CALL LIGHT IN REACH, pt VERBALIZES INSTRUCTION TO CALL WHEN FINISHED.
--- NOTE | 2020-11-16 02:15 | NUR ---
PT ASSESSMENT COMPLETE. PT UTLIZES CALL LIGHT, REQUESTS TO USE BSC. PT HAD XL LOOSE BM. PT STATES THAT PAIN IS WELL CONTROLLED. DENIES SOB OR NAUSEA. ASSESSMENT UNCHANGED FROM PREVIOUS. PT DENIES FURTHER NEEDS AT THIS TIME. CALL LIGHT IN REACH.
--- NOTE | 2020-11-16 03:53 | NUR ---
NIPPING MACHINE OPERATOR PROVIDED CLINICAL UPDATE TO GIAL AT [facility]. FAXED COPY OF COVID STATUS PER REQUEST.
--- NOTE | 2020-11-16 06:15 | NUR ---
PT UP TO USE THE [facility]. 0600 DOSE OF GASTROGRAFIN GIVEN IN 20 OZ OF APPLE JUICE. PT DENIES FURTHER NEEDS AT THIS TIME. CALL LIGHT IN REACH. ROOM IN VIEW OF RN STATION WITH CURTAIN OPEN.
--- NOTE | 2020-11-16 07:18 | NUR ---
PT AWAKE AND PARTICIPATORY AT TIME OF BEDSIDE REPORT. DENIES NEEDS AT THIS TIME.
--- NOTE | 2020-11-16 07:39 | NUR ---
PT DOWN TO XRAY FOR C/T
--- NOTE | 2020-11-16 08:24 | NUR ---
PT BACK FROM IMAGING, WELL TOLERATED. RESTING IN BED NOW, BREAKFAST ORDERED.
--- NOTE | 2020-11-16 08:28 | NUR ---
PT AWAKE IN BED. WHITE BOARD UPDATED. CALL LIGHT WITHIN REACH. NO FURTHER NEEDS AT THIS TIME.
--- NOTE | 2020-11-16 09:16 | NUR ---
PT STOOD WITH FWW AND USED BSC. OT WORKING WITH PT ON ORAL CARE AND JOSE A CARE. CALL LIGHT WITHIN REACH. NO FURTHER NEEDS AT THIS TIME
--- NOTE | 2020-11-16 09:43 | NUR ---
PT EATS BREAKFAST AFTER RETURNING FROM TESTING WELL TOLERATED. PT RESTING IN BED AT THIS TIME DENIES NEEDS OF ANYTHING.
--- NOTE | 2020-11-16 11:18 | NUR ---
PT UP TO THE BSC THEN RETURNS TO RESTING IN BED. PT IS TEARFUL REGARDING DX SO FAR, STATES SHE IS WORRIED LUNG NODULES COULD BE CANCER, WORRIES HOW TO RETURN FROM LANE. TIME SPENT WITH THIS PT ALLOWING HER TO VOICE HER CONCERNS COMFORT ATTEMPTED.
--- NOTE | 2020-11-16 11:30 | NUR ---
Spoke with Briana, she states she is planning transfer to [facility] when becomes available. Has questions concerning transport and informed she will go by ground ambulance and Medicare will pay. She wants to know if they will cover the cost of return to [place] by Ambulance and updated it will depend on her condition. She states her last trip was covered.
--- NOTE | 2020-11-16 12:17 | NUR ---
PT NOTIFIED OF MRI AT 1230. DENIES QUESTIONS OR CONCERNS OF
--- NOTE | 2020-11-16 13:09 | NUR ---
PT TAKEN TO IMAGING, NARESH SITTING IN RM. HE REMEMBERS ME FROM PREVIOUS ADMISSION-SAME RM HE STATED. HAD PLEASANT VISIT, WILL CONTINUE TO FOLLOW
--- NOTE | 2020-11-16 14:07 | NUR ---
PT DOWN FOR POST TENSIONING IRONWORKER CALLS STATES PT CAN'T BE STILL AND IS NOW REFUSING MRI. REPORTED TO DR MARTINEZ HE ADVISES ATIVAN. RN TO MRI ROOM PT CHANGES HER MIND STATES SHE DOESN'T WANT MEDS SHE WILL GET THROUGH IT AND BE STILL. IS IN THE ROOM NOTIFIED IT WILL BE 30-45 MINUTES MORE AT LEAST
--- NOTE | 2020-11-16 14:40 | NUR ---
PATIENT BACK FROM MRI. UP TO BSC AND THEN BACK TO BED, 1PA FWW. RN IN ROOM. VITALS AND I&O'S CHARTED. CALL LIGHT IN REACH. NO FURTHER NEEDS AT THIS TIME.
--- NOTE | 2020-11-16 17:37 | NUR ---
pt up to bsc states she feels weaker than before. reminded her of all the time on mri table as well as long hard day, perhaps she is just tired. returns to resting in bed evening meal ordered.
--- NOTE | 2020-11-16 19:40 | NUR ---
REPORT RECEIVED FROM DAY SHIFT RN. PT LYING IN BED ALERT AND ORIENTED. DENIES NEEDS AT THIS TIME. WHITE BOARD UPDATED. CALL LIGHT IN REACH.
--- NOTE | 2020-11-16 22:00 | NUR ---
EVENING ASSESSMENT COMPLETE. SCHEDULED MEDS ADMINISTERED PER EMAR. PRN FOR PAIN ADMINISTERED FOR REPORTS OF 7/10 GENERALIZED PAIN BUT MAINLY IN HANDS AND FEET AT THIS TIME. ASSISTED PT TO USE BED HIGH PT FELT TOO WEAK AND PAINFUL TO USE BSC. JOSE A CARE DONE BY STAFF. REPOSITIONED IN BED WITH 2PA. PT DENIES QUESTIONS OR CONCERNS AT THIS TIME. CALL LIGHT IN REACH.
--- NOTE | 2020-11-16 23:54 | NUR ---
PT UPDATE PROVIDED TO GABRIEL FROM [facility].
--- NOTE | 2020-11-17 01:14 | NUR ---
CALL LIGHT ANSWERED. PT UP TO BSC WITH 1PA AND FWW TO VOID 300 ML. STAFF ASSIST WITH JOSE A CARE. BACK TO BED, BOBO FAIR. PT WEAK AND PAINFUL WITH MOVEMENT. DENIES FURTHER NEEDS. BED ALARM FOR SAFETY.
--- NOTE | 2020-11-17 03:51 | NUR ---
PT RESTING IN BED WITH EYES CLOSED, NAD.
--- NOTE | 2020-11-17 05:25 | NUR ---
PT UP TO BSC WITH 1PA AND FWW TO VOID. BACK TO BED, BOBO FAIR. PRN ADMINISTERED FOR GENERALIZED PAIN. ASSESSMENT COMPLETE. PT DENIES FURTHER NEEDS AT THIS TIME. CALL LIGHT IN REACH.
--- NOTE | 2020-11-17 07:20 | NUR ---
TOOK REPORT ON PT. PT IN BED SLEEPING CURRENTLY.
--- NOTE | 2020-11-17 09:24 | NUR ---
PATIENT AWAKE IN BED, VITALS DONE BY JENN RUSSELL, I&OS CHARTED. WASHCLOTH PROVIDED FOR FACE AND HANDS, FRESH ICE WATER PROVIDED. NO OTHER NEEDS AT THIS TIME
--- NOTE | 2020-11-17 13:02 | NUR ---
PT IN ROOM WITH . PT DENIES NEEDS AT THIS TIME. PT CURRENTLY IN BED WITH CALL LIGHT IN REACH. BED RAILS IN UP POSITION.
--- NOTE | 2020-11-17 13:58 | NUR ---
Spoke with Neida, [facility] transfer center. Updated on patient status. Informed there are currently no available beds and unknown at this time when one will be available.
--- NOTE | 2020-11-17 15:22 | NUR ---
CARE MEETING COMPLETED WITH CHEMICAL CELL CHANGER. PATIENT STILL AWAITING TRANSFER BED TO [facility] AT THIS TIME. [facility] GIVEN CLINICAL UPDATE BY UMA BARAJAS. NO CHANGES IN DISCHARGE PLAN AT THIS TIME. WILL CONTINUE TO FOLLOW UP WITH PATIENT DURING HER VISIT.
--- NOTE | 2020-11-17 15:33 | NUR ---
assisted patient to bathroom and bACK TO BED. IN ROOM CALL LIGHT IN REACH
--- NOTE | 2020-11-17 15:44 | NUR ---
Patient voices concern about weekly medication, Methotrexate, for RA. Dr. Zeng notified. Telephone order Dr. Zeng/Richard Styles RN, for methotrexate 20 mg PO X1 at [facility].
--- NOTE | 2020-11-17 18:53 | NUR ---
PT SPENT HER DAY SITTING IN ROOM WITH IN ROOM. PT CONTINUES TO HAVE URINARY FREQUENCY. PT CURRENTLY IN ROOM EATING A HAMBURGER. DENIES NEEDS AT THIS TIME.
--- NOTE | 2020-11-17 19:50 | NUR ---
1PA FWW PIVOT TO THE BSC, ASSISTED BY RN WITH BOOST IN BED, FRESH ICEWATER PROVIDED, NO FURTHER NEEDS
--- NOTE | 2020-11-17 21:10 | NUR ---
IN TO ASSIST PT TO THE BSC, 1PA FWW PIVOT, THEN BACK TO BED, VITALS TAKEN, RN IN ROOM FOR PM MEDS, ICE WATER TOPPED OFF, NO FURTHER NEEDS AT THIS TIME
--- NOTE | 2020-11-17 21:17 | NUR ---
Up to bsc, voided, tolerated well, slight redness between buttocks, attends in place, 1PA/FWW. denies sob on return, coop with vitals and assessments. On room air. bruised arms healing. sl patent. c/o 5/10 generalized hands and legs pain. medicated with norco 1 tabs. tolerating liquids well, no emesis, warm blnaket and fresh fluids given. hob elevated to her comfort
--- NOTE | 2020-11-17 23:30 | NUR ---
PT UP TO THE BSC, 1PA FWW PIVOT, NO FURTHER NEEDS
--- NOTE | 2020-11-18 00:02 | NUR ---
RESTING, EYS CLOSED, ON ROOM AIR, FLUIDS AND CALL LIGHT AT HANDS REACH
--- NOTE | 2020-11-18 03:55 | NUR ---
pt c/o nausa, provided pt with emesis bag and refreshed ice water, rn informed, no further needs at this time
--- NOTE | 2020-11-18 04:09 | NUR ---
up to bsc, voided, c/o upper abd upset stomach. Medicated with Zofrn ODT 4mg SL
--- NOTE | 2020-11-18 05:35 | NUR ---
Pt has slept, was medicated with per pain x1, effective, c/o abd pain. discomofrt and was given Zofran, no further c/o. effective, tolerating diet well. On room air. lungs clear dim at bases, no c/o sob. Up to BSC several times, tolerated well, no SOB, SL patent. edema to bilat LE, decllines to elevated them. still waiting for [facility] bed. [facility] transfer center staff Trudy called this am to verify pts status and to let us know she is still on the list for a bed.
--- NOTE | 2020-11-18 05:50 | NUR ---
IN TO GET VITALS WITH RN, PT UP TO TE BSC, 1PA FWW, BACK TO BED WITH RN, NO FURTHER NEEDS AT THIS TIME
--- NOTE | 2020-11-18 05:52 | NUR ---
c/o hands and legs pain 5/10, medicated with [place] 1 tab. on room air, moist non productive cough present. Up to bsc, voided, back to bed. slightly unsteady and slow painful gait present. cooperative
--- NOTE | 2020-11-18 07:07 | NUR ---
Report from Babatunde Quintero RN. Patient resting in bed, eyes closed, respirations even and unlabored. Allowed to rest at this time. Call light in reach, bed rails up X2.
--- NOTE | 2020-11-18 09:55 | NUR ---
It was my pleasure to visit with Briana this morning. Briana states that she is mostly happy with her care here in the hospital. She did have some concerns about the cleanliness of her room, and her being able to wash her face for the day. She did explain that she did not want to shower however. We immediately took care of her requests, and ES was advised that the patient would like her room cleaned. She did not specifically complain about the restroom, but stated that she would like the floors cleaned. On inspection there was no visible dirt, mud, debry, etc. on the floor. Garbage cans were baically empty of debris, and the bathroom appeared clean with no oders. We did attend to Briana's request for freshening herself, and her room. No other concerns were verbalized at this time, and patient admits that her pain has been well controlled and her patient care neeeds have been met.
--- NOTE | 2020-11-18 11:30 | NUR ---
Pt sitting up in bed resting safely w/ call light in reach. Pt declined offer to sit up in recliner and have light turned on. Pt denies need for pain medication. Pt given fresh ice water, no other needs at this time.
--- NOTE | 2020-11-18 13:48 | NUR ---
Lying in bed, resting with eyes closed. Respirations even and unlabored. Allowed to rest at this time. Call light in reach, bed rails up X2.
--- NOTE | 2020-11-18 14:37 | NUR ---
ASSISTED PATIENT TO BSC. PATIENT REFUSED SHOWER. I CLEANED UP PATIENTS ROOM. SHE STATED SHE DID NOT NEED ANYTHING AT THIS TIME. CALL LIGHT IN REACH.
--- NOTE | 2020-11-18 14:45 | NUR ---
WHEN I WENT IN THIS MORNING TO DO HER INTAKE AND OUTPUT I ASKED HER IF SHE WOULD LIKE TO TAKE A SHOWER AND SHE SAID NOT TODAY. MAYBE TOMORROW.
--- NOTE | 2020-11-18 15:01 | NUR ---
Pt used call light to request to use the BSC. 1PA w/FWW to BSC. Pt voided and transfered back to bed. Pt resting safely w/ call light in reach and BLE elevated. Pt c/o pain 6/10 in BLE, PRN pain meds administered per order. No other needs at this time.
--- NOTE | 2020-11-18 17:20 | NUR ---
No change in dc plan, pt awaiting bed at [facility].
--- NOTE | 2020-11-18 18:17 | NUR ---
Pt rested in bed for entire shift. Pt declined several offers to sit up in recliner or shower. VSS on RA. Awaiting [facility] bed. PRN pain meds last given at 1445.
--- NOTE | 2020-11-18 20:12 | NUR ---
1PA WITH FWW FROM BSC BACK TO BED. PT DENIES FURTHER NEEDS AND CALL LIGHT IS CLOSE.
--- NOTE | 2020-11-18 21:32 | NUR ---
PATIENTS VITALS TAKEN AND RECORDED. INTAKE AND OUPUT RECORDED. PATIENTS EVENING MEDICATIONS GIVEN PER ORDER. PATIENT RATES PAIN AT A 5/10 IN HER RIGHT LEG. PATIENT GIVEN PRN PAIN MEDICATION PER ORDER. PATIENT DENIES ANY FURTHER NEEDS. CALL LIGHT IN REACH.
--- NOTE | 2020-11-18 21:54 | NUR ---
in bed, awakes easily, no further c/o pain, was medicated earlier by another RN. On room air, sl patent, edema to LE, declines to elevated. cooperative. call light and fluids at bedside
--- NOTE | 2020-11-19 00:39 | NUR ---
In bed, eyes closed, no distress, call light and fluids at bedside, on room air
--- NOTE | 2020-11-19 01:45 | NUR ---
resting, no distress, fluids and call light at bedside [facility] call center called asking about pt, there are still no bed available. Report given.
--- NOTE | 2020-11-19 05:27 | NUR ---
PT HAS SLEPT, MEDICATED WITH NORCO X2, PER GENRAL PAIN WITH GOOD PAIN RELIEF. UP TO BSC EARLIER ON SHIFT, THIS AM PT STARTED HAVING MORE PAIN R LEG AND INCREASED GAIT AND COORDINATION PROBLEMS WHEN TRYING TO GET OFF FROM BED TO BSC. BEDPAN USED, VOIDING QS. EDEMA LE, R LEG MORE PROMINENT THAN LEFT. GOOD CMS. TOLERATING FLUIDS WELL ON ROOM AIT, USES CALL LIGHT AND REPOSITINS SELF. SL PATENT
--- NOTE | 2020-11-19 07:03 | NUR ---
up to bs,
--- NOTE | 2020-11-19 12:27 | NUR ---
PT ASLEEP, DID NOT DISTURB. PT IS TO TX OUT TO [facility] SOON BED OPENS. WILL FOLLOW NEEDED
--- NOTE | 2020-11-19 14:29 | NUR ---
Zofran 4mg SL administered for reports of new onset of nausea.
--- NOTE | 2020-11-19 15:12 | NUR ---
No change in plan for discharge, awaiting transfer.
--- NOTE | 2020-11-19 15:24 | NUR ---
Bloxom 7.5/325mg po admin for reports of 7/10 back/knee pain.
--- NOTE | 2020-11-19 16:04 | NUR ---
Patient resting in bed, alert and oriented x4. Patient has no distress. Personal supplies and call light within reach.
--- NOTE | 2020-11-19 17:00 | NUR ---
Spoke with JENN Acevedo at [facility] regarding patient updates. All questions answered.
--- NOTE | 2020-11-19 17:30 | NUR ---
1PA TO BSC- BEDBATH COMPLETE, ORAL AND JOSE A CARE WELL. LOTION ON BODY, PATIENT HAS A QUARTER SIZED CALLUS/ BLISTER ON THE BOTTOM OF HER RIGHT FOOT, ON THE PAD BELOW LARGE TOE. VERY PAINFUL. CALL LIGHT IN REACH, FRESH ICE WATER PROVIDED
--- NOTE | 2020-11-19 18:47 | NUR ---
Patient has denied difficulty breathing throughout this shift.
--- NOTE | 2020-11-19 19:33 | NUR ---
SHIFT REPORT RECEIVED FROM DIGNA BARAJAS. PT RESTING IN BED. NO NEEDS AT THIS TIME. CALL LIGHT IN REACH.
--- NOTE | 2020-11-19 19:50 | NUR ---
IN TO GET PT VITALS, PT UP TO VOID, PJ ON, PT CALLED TO UPDATE HIM, NO FURTHER NEEDS AT THIS TIME
--- NOTE | 2020-11-19 20:14 | NUR ---
SCHEDULED MEDS PROVIDED. PY PAIN 5/10, PRN PAIN MED PROVIDED. PT LEAVING WITH EMS AT THIS TIME.
--- NOTE | 2020-11-19 21:35 | NUR ---
TRANSFER REPORT GIVEN BY PHONE TO GABRIELLE BARAJAS AT [facility] FLOOR 10K, ROOM 3.
== END 2020-11-19 20:18 | disposition short-term general hospital (02) | DRG 643 ==
LOC: ED 16:36 → MS 16:38
PROVIDERS: ADMIT Internal Medicine; ATTEND Internal Medicine
PROC: 009U3ZX Drainage of Spinal Canal, Percutaneous Approach, Diagnostic (ICD-10-PCS; principal; 2020-11-16)
DX: D49.7 Neoplasm of unspecified behavior of endocrine glands and other parts of nervous system (principal); I26.99 Other pulmonary embolism without acute cor pulmonale; K86.2 Cyst of pancreas; N30.00 Acute cystitis without hematuria; G96.198 Other disorders of meninges, not elsewhere classified; R91.8 Other nonspecific abnormal finding of lung field; E27.8 Other specified disorders of adrenal gland; B96.1 Klebsiella pneumoniae [K. pneumoniae] as the cause of diseases classified elsewhere; E83.42 Hypomagnesemia; E86.0 Dehydration; K83.8 Other specified diseases of biliary tract; I10 Essential (primary) hypertension; K21.9 Gastro-esophageal reflux disease without esophagitis; M06.9 Rheumatoid arthritis, unspecified; I77.1 Stricture of artery; I70.0 Atherosclerosis of aorta; Z79.899 Other long term (current) drug therapy
CPT/HCPCS: 36415; 62270; 71045; 71260; 72156; 72157; 72158; 74177; 80053; 81001; 82040; 82042; 82550; 82607; 82784; 82945; 83735; 83873; 83916; 84100; 84157; 84443; 84484; 85025; 85032; 86140; 86301; 86431; 86592; 86703; 87077; 87088; 87186; 87483; 89051; 93005; 93010; 96374; 97110; 97163; 97166; 97530; 97535; 99285-25; A9270; A9577; A9579; J0696; J1650; J3475; J7030; J7121; J8610; Q9967; U0003

== ENCOUNTER 2021-02-15 20:44 | Inpatient (IN) | payer MEDICARE, BC ==
[~2021-02-15] VITALS: Ht 165.1 cm; Wt 66.6 kg
[~2021-02-15 20:44] MED LIST changes: +LOPERAMIDE2 M1 PO
[2021-02-15] MEDS ORDERED: METOPROLOL SUC100 MG PO (21:03)
[2021-02-15] MEDS ORDERED: NORVASC10 MG PO (21:04)
[2021-02-15] MEDS ORDERED: ELIQUIS5 M1 PO (21:05)
[2021-02-15] MEDS ORDERED: GABAPENTIN300 MG PO (21:06)
[2021-02-15] MEDS ORDERED: GERI-TUSSIN DM473 M1 PO (21:07)
[2021-02-15] MEDS ORDERED: MELATIN3 MG PO (21:09)
[2021-02-15] MEDS ORDERED: [UNRECOGNIZED DRUG - OTHER] SUB-Q (21:10)
--- NOTE | 2021-02-15 23:50 | NUR ---
PT ADMITTED TO ROOM 111 FROM ED. DEPENDENT ON STAFF TO SLIDE OVER FROM STRETCHER TO BED. RA, RESPONDED TO QUESTIONS. COMPLAINED OF COLD, WARM BLANKET PROVIDED. INDWELLING PATEL. COCCYX ALLEYN APPLIED TO BOTTON, LEFT SIDE BUTTOCK WITH SMALL OPEN WOUND. PICTURES IN CHART. PT RESIDES AT [facility]. AT HOME.
[2021-02-16] MEDS ORDERED: NORVASC10 MG PO (00:52)
[2021-02-16] MEDS ORDERED: ELIQUIS5 MG PO (00:53)
[2021-02-16] MEDS ORDERED: GERI-TUSSI100 MG/5 M PO (00:55)
[2021-02-16] MEDS ORDERED: ZESTRIL5 MG PO (00:59)
[2021-02-16] MEDS ORDERED: LIDODERM1 EACH TD (01:00)
[2021-02-16] MEDS ORDERED: POWDERLAX238 GM PO (01:05)
--- NOTE | 2021-02-16 01:43 | NUR ---
ADMISSION ASSESSMENT COMPLETE. SCHEDULED MEDS ADMINISTERED PER EMAR. PRN FOR PAIN ADMINISTERED FOR C/O SORE THROAT. HOB ELEVATED. NO SWALLOWING ISSUES NOTED. IV BOLUS INFUSING WNL. PT ALERT AND ORIENTED X 3. DENIES NAUSEA OR SOB. PATEL PATENT WITH YELLOW URINE. SEDIMENT NOTED. PRESSURE SORE NOTED ON COCCYX (PICS IN CHART), ALLEVYN PLACED. JOSE A AREA RED AND EXCORIATED. BARRIER CREAM APPLIED. HEEL PROTECTORS APPLIED. ASSISTED PT WITH ORAL CARE. WARM BLANKET GIVEN. PT DENIES QUESTIONS OR CONCERNS. CALL LIGHT IN REACH. BED ALARM FOR SAFETY.
--- NOTE | 2021-02-16 03:16 | NUR ---
IV BOLUS COMPLETE. MAINTENANCE FLUIDS INFUSING WNL. PT REPOSITIONED IN BED. DENIES SOB. RA. SpO2 95%. TELE #3. AFIB. HR 70'S. BED ALARM FOR SAFETY. CALL LIGHT IN REACH.
--- NOTE | 2021-02-16 03:34 | NUR ---
CALL LIGHT ANSWERED. IN TO ASSIST PT WITH SIPS OF WATER AND REPOSITION WITH PILLOWS. PT AGREES SHE IS COMFORTABLE. NO FURTHER NEEDS.
--- NOTE | 2021-02-16 04:32 | NUR ---
DR. MARTINEZ NOTIFIED OF BLOOD PRESSURE BELOW PARAMETERS. NEW TELEPHONE ORDERS RECEIVED. VERIFIED WITH READ BACK METHOD.
--- NOTE | 2021-02-16 06:21 | NUR ---
NOTIFIED DR MARTINEZ OF CRITICAL LAB VALUE, MAG 0.9. ORDERS RECEIVED FOR 2 GM MAG SULFATE Q 2 HOURS FOR TOTAL OF [address] MARTINEZ AWARE OF THE HGB/HCT LAB.
--- NOTE | 2021-02-16 06:49 | NUR ---
VS AND I&O COMPLETE. SCHEDULED MEDS ADMINISTERED PER EMAR. PT SOMNOLENT. AWAKENS BRIEFLY WHEN MOVED. REPOSITIONED WITH PILLOWS IN BED. PATEL PATENT WITH QS YELLOW URINE. SEDIMENT NOTED. RESPIRATIONS EVEN. SpO2 96-100% ON RA. OCCASIONAL DRY COUGH NOTED. CALL LIGHT IN REACH. BED ALARM FOR SAFETY.
--- NOTE | 2021-02-16 07:05 | NUR ---
PT RESTING IN BED EYES CLOSED RR REGULAR. PT APPEARS TO BE SLEEPING. NO DISTRESS NOTED. 95% OXYGEN SATURATION AT THIS TIME PER TELEMETRY PULSE OXIMETRY.
--- NOTE | 2021-02-16 11:12 | NUR ---
PT ALERT AN ANXIOUS, SHE WANTS THE PHONE TO CALL HER AND VERBALIZED TO HIM SHE WANTS TO DISCHARGE.
--- NOTE | 2021-02-16 13:00 | NUR ---
Notified by Rn, pt is crying and wants to speak with Case Management.
--- NOTE | 2021-02-16 13:24 | EKG ---
[facility] [address] [place] [address] Signed Atrial fibrillation with rapid ventricular response ST \T\ T wave abnormality, consider inferior ischemia Abnormal ECG When compared with ECG of 13-NOV-2020 16:44, Atrial fibrillation has replaced Sinus rhythm Vent. rate has increased BY 59 BPM T wave inversion now evident in Inferior leads Nonspecific T wave abnormality now evident in Lateral leads Confirmed by RUBY MARTINEZ MD ([id number]) on 02/16/2021 1:24:23 PM Electronically Signed By: RUBY MARTINEZ MD 02/16/21 1324 PATIENT NAME: JOVANA CHAIREZ Electrocardiogram DATE OF : 42 PHYSICIAN: RUBY MARTINEZ MD REPORT #: [id number] REPORT IS CONFIDENTIAL AND NOT TO BE RELEASED WITHOUT AUTHORIZATION
[2021-02-16] MEDS ORDERED: VENTOLIN HFA18 GM INH (14:20)
[2021-02-16] MEDS ORDERED: ACETAMINOPHEN325 M1 PO (14:21)
--- NOTE | 2021-02-16 14:23 | NUR ---
Medications reconciled using facility [facility]. Patient received Regen-Cov sub-q injection 02/10/21
--- NOTE | 2021-02-16 14:29 | NUR ---
PT SITTING UP IN BED ALERT TALKING ON PHONE, NAIL FEEDER IN ROOM TO TAKE V/S AND I/O CASE MANAGEMENT NOTIFIED OF PATIENT DISTRESS ABOUT INSURANCE CONCERNS.
--- NOTE | 2021-02-16 14:36 | NUR ---
Patient vitals, I&Os are complete. Call light is in reach. She will be expecting a phone call from her tomorrow.
--- NOTE | 2021-02-16 15:45 | NUR ---
In to speak with pt, she states she can't speak with me. I need to call her spouse. Rn overheard this and states she spoke with daughter and per daughter spouse has dementia. Will call daughter.
--- NOTE | 2021-02-16 16:48 | NUR ---
Called emergency contact and reached Zuly, granddaughter. She states her mom is ill and had treatment for cancer and is trying to not have increased stress. Discussed with Zuly needs for Briana. Briana currently living at [facility]. Insurance is running out. Pt. spouse has attempted to contact medicade, but stated to granddaughter they have not called him back. Notified she can make a referral and gave her the number for [facility] and Ana M Joseph's name. She states her grandfather is from a different generation and will not release any financial info and Briana does not have this information either. Asked her to call [facility] and speak with Ana M and get the process started. Also informed she may need her mom to step and get financials from dad, if he won't work with Zuly. She also states she has difficulty getting information from hospitals. Discussed she can sign a medical rep form with her grandmother and then information has to be released. She will follow up tomorrow and contact me if she wants to sign form and will contact [facility].
--- NOTE | 2021-02-16 16:55 | NUR ---
called and left a message with Ana M Joseph to check if and eval has been started for Briana and if her spouse has contacted them to get medicade.
--- NOTE | 2021-02-16 17:19 | NUR ---
MIDLINE INSERTION NOTE: ASKED BY DR. MARTINEZ TO EVALUATE PATIENT FOR POTENTIAL MIDLINE PLACEMENT. PATIENT HAS A HISTORY OF POOR IV ACCESS, AND CURRENTLY ONLY HAS A 22 G IN LEFT WRIST. PT ALSO REPORTS THAT SHE HAS HAD PICC LINES IN THE PAST. PATIENT IS ADMITTED FOR DEHYDRATION/DIARRHEA/COVID+. PATIENT ABLE TO GIVE VERBAL CONSENT FOR MIDLINE PLACEMENT AND ALL QUESTIONS ANSWERED BEST POSSIBLE PRIOR TO PROCEDURE STARTING. PATIENT'S RIGHT ARM WAS EVALUATED FIRST, AND THE BASILIC AND BRACHIAL VEINS WERE IDENTIFIED EASILY. PATIENT'S CEPHALIC VEIN WAS NOT EASILY IDENTIFIED. PATIENT'S BASILIC VEIN PER SITE RITE 8 U/S ESTIMATED THAT A 4FR CATHETER WOULD TAKE UP 28% OF THE VEIN DIAMETER, THEREFORE THIS WAS SELECTED THE BEST CHOICE. PATIENT'S SKIN WAS STERILY PREPPED AND DRAPED. PATIENT WAS GIVE LIDOCAINE 1% SUB-Q PRIOR TO STARTING PROCEDURE. BASILIC VEIN WAS EASILY ACCESSED USING THE POWERGLIDE PRO MIDLINE, 18G, AND THE CATHETER WAS THREADED INTO THE VEIN EASILY. DARK, BRISK, NON PULSATILE BLOOD WAS EASILY RETURNED FROM MIDLINE. LINE FLUSHES AND DRAWS BLOOD BACK EASILY. STERILE DRESSING WAS PLACED OVER MIDLINE, INCLUDING BIO PATCH AND SECUREMENT DEVICE. PATIENT WAS GIVEN INSTRUCTIONS AND EDUCATION REGARDING HER MIDLINE. EDUCATION MATERIAL WAS LEFT INSIDE PATIENT'S CHART. REPORT GIVEN TO JENN HAWLEY WHO IS CARING FOR THIS PATIENT.
--- NOTE | 2021-02-16 18:11 | NUR ---
PT REPORTED SHE NEEDS HELP EATING. SHE HAS BEEN ABLE TO FEED SELF FOR LUNCH, RN IN ROOM TO ASSESS, SHE WAS ABLE TO BRING SPOON TO MOUTH WITHOUT ANY ISSUES. FROM FAMILY REPORT SHE IS ABLE TO FEED SELF AT BASELINE AND REQUIRES ASSISTANCE FOR ALL OTHER ADLS.
--- NOTE | 2021-02-16 18:15 | NUR ---
PT HAS BEEN ALERT OVER THIS SHIFT, SHE REPORTS PAIN AT BOTTOCKS AND LEGS, TYLENOL HAS BEEN GIVEN TWICE. SHE IS BEDBOUND AT BASE LINE, SHE HAS BEEN ABLE TO FEED HERSELF. SHE CALLS FREQUENT FOR ASSISTANCE WITH PHONE, STAFF REPOSITIONS WHEN IN ROOM. SHE NOW HAS MIDLINE RIGHT ARM, OK TO DRAW BLOOD FROM LABS, FLUSH REGULARLY TO MAINTAIN. SHE HAS BEEN EMOTIONAL OVER SHIFT DUE TO INSURANCE ISSUES, [facility] GEOLOGY ASSOCIATE HAS ASSURED STAFF TO LET PATIENT KNOW SHE WILL BE ABLE TO RETURN TO [facility] AND [facility] HAS BEEN IN CONTACT WITH PATIENTS FAMILY WELL.
--- NOTE | 2021-02-16 19:08 | NUR ---
Patient is wondering where her phone is but mentioned that her is getting it fixed earlier. Vitals, I&Os done. Call light in reach.
--- NOTE | 2021-02-16 19:43 | NUR ---
Shift report recieved from JENN Briones, pt resting in bed safely w/ call light in reach, no needs at this time.
--- NOTE | 2021-02-16 20:30 | NUR ---
PT RESTING IN BED SAFELY W/ CALL LIGHT IN REACH. EVENING ASSESMENT COMPLETED, SCHEDULED MEDS GIVEN, AND IV ABX INFUSING PER PROVIDER ORDER. PT ASSISTED W/ REPOSITIONING IN THE BED.
--- NOTE | 2021-02-16 21:30 | NUR ---
IN TO GET VITALS, PATEL EMPTIED, CATH CARE COMPLETED, WATER REFILLED, NO ICE, PT REQUESTING BRIAN, RN NOTIFIED, NO FURTHER NEEDS AT THIS TIME
--- NOTE | 2021-02-16 22:30 | NUR ---
PT REQUESTED MELATONIN FOR SLEEP, PROVIDER CALLED AND TORB RECEIVED FOR 3MG MELATONIN QHS. PT GIVEN MELATONIN, RESTING IN BED SAFELY W/ CALL LIGHT IN REACH, NO OTHER NEEDS AT THIS TIME.
--- NOTE | 2021-02-17 00:20 | NUR ---
CALL LIGHT ON, PT NEEDS HELP, DONNING PPE TO GO IN RM, PT CALLS AGAIN, ONCE IN RM LET PT KNOW IT TAKES A MINUTE TO GET READY TO COME INTO YOUR RM, PT IS UNDERSTANDING, ASSISTED PT WITH BLANKETS AND GOWN, PT WAS FEELING TANGLED, PT HAVING ANXITIY, FEELING OF BEING A BOTHER, AND PT STATES 'SOMETIMES I FEEL LIKE I SHOULD HAVE BEEN LEFT IN MY ROOM ([place]) TO ' CHATTED WITH PT AND TRYING TO ENCOURAGE PT THAT WE WANT HER TO GET BETTER AND REASURE PT THAT SHE IS NOT A BOTHER, PT STATES SHE IS UNABLE TO GET BACK TO SLEEP AGAIN, TRYING TO REASSURE PT, NO FURTHER NEEDS
--- NOTE | 2021-02-17 00:29 | NUR ---
PT CALLED FOR ASSISTANCE, STATES SHE IS TANGLED IN HER BLANKET, BLAS CARRANZA IN ROOM TO ASSIST PT.
--- NOTE | 2021-02-17 01:11 | NUR ---
PT CALLING, PT STATES THAT NEEDS TO CHAT, LET PT KNOW THAT IT WILL BE A LITTLE BIT BEFORE WE CAN BE BACK IN, INFORMED PT ABOUT MINAMIZING PPE USAGE AND LIMITING STAFF EXPOSURE TO PTs PERCAUSONS, PT SEEMS TO BE AGREEABLE, THIS ASSEMBLY LINE WORKER REMINDED PT TO STILL CALL IF OTHER IMPORTANT NEEDS AROSE, NO FURTHER NEEDS AT THIS TIME
--- NOTE | 2021-02-17 02:30 | NUR ---
PT CALLED FOR ASSISTANCE W/ GOWN. PT HAD TAKEN GOWN OFF, ASSISTED PT TO PUT GOWN BACK ON, PT RESTING SAFELY IN BED W/ CALL LIGHT IN REACH, DENIES ANY OTHER NEEDS AT THIS TIME.
--- NOTE | 2021-02-17 02:50 | NUR ---
CALL LIGHT ON, PT STATES "I JUST NEED HELP IN HERE!", IN RM TO FIND PT WITH GOWN COMPLETELY OFF, ATTENDS HALF OFF, PT RECENTLY HAD A BM, PT CLEANED UP, NEW ATTENDS IN PLACE, PT PLACED BACK INTO GOWN, BOOSTED IN BED NO FURTHER NEEDS AT THIS TIME
--- NOTE | 2021-02-17 03:54 | NUR ---
PT CALL LIGHT ON, PT ASKING FOR HELP WITH 'THE STATION' FROM DOORWAY, THIS SUPERVISOR MACHINE SETTER TRYS TO GET PT TO CLEARIFY WHAT SHE MEANS, PT DOES NOT, IN TO ASSIST PT, PT HOLDING IV TUBING UP, TOLD PT ABOUT WHY SHE HAS IS IT HAD PT LET GO/DROP IT TO THE SIDE, NOTED PATEL TUBING WAS TAUGHT ON THE SIDE RAIL, FREED THE TUBING, COVERED PT UP WITH JUST THE SHEET PER PT REQUEST, NO FURTHER NEEDS AT THIS TIME
--- NOTE | 2021-02-17 04:10 | NUR ---
Pt called stating she "needed help removing the patch". Upon entering the room pt had removed the stat lock from thigh. Stat lock replaced and pt educated on leaving in place.
--- NOTE | 2021-02-17 05:49 | NUR ---
Pt awake for majority of shift, calling frequently for various things, from taking gown off to pulling off campbell stat lock on inner thigh. Campbell w/ sufficient urine output and pt w/ sufficient fluid intake. IV fluids infusing per provider order. Pt bedbound at baseline, 1-2PA for repositioning and incontenence of stool.
--- NOTE | 2021-02-17 08:18 | NUR ---
PATIENT AGREES TO ALLOW NURSING STAFF TO GIVE UPDATES TO SIOBHAN CRONIN AT THIS TIME. HE CALLED THIS AM AND WANTED TO SEE IF HE COULD VISIT PT AND GET UPDATES. HE VERBALIZED HE WILL CALL BACK LATER THIS AM.
--- NOTE | 2021-02-17 08:30 | NUR ---
Notified by Dr. Bay in [facility]T, pt may dc after he sees her today. Will update [facility] as they are under executive order and need auth for [facility] for pt to return. Texted [facility] update when meeting was completed.
--- NOTE | 2021-02-17 11:00 | NUR ---
PT. USED CALL LIGHT FOR ASSISTANCE WITH REPOSITIONING. THIS NURSE AND WELL FLOW OPERATOR RESPONDED. PT.'S LOWER BODY WAS OVER THE SIDE OF THE BED WITH FEET ON THE GROUND. PT. ASSISTED BACK INTO THE BED AND REPOSITIONED. ATTENDS WET AND CHANGED. DISCUSSED SAFETY AND USING CALL LIGHT. BED ALARM ON AND CURTAIN OPEN.
--- NOTE | 2021-02-17 11:25 | NUR ---
REPORT RECEIVED FROM NIGHT RN AND PT. CARE RESUMED. PT. IS ALERT AND ORIENTED TO ALL BUT TIME. SHE IS ANXIOUS AND WANTS TO SPEAK WITH . ASSISTED IN CALLING. PT. HAD A LARGE INCONTINENT STOOL. CLEANED AND CHANGED. PT. WAS FOUND SCRATCHING HER PERIAREA AND AREA HAS SEVERAL STRATCHES THAT ARE BLEEDING. DISCUSSED NOT SCRATCHING WITH PT. COCYX ALLEVYN REPLACED. WOUND UNDERNEATH IS DRY WITH AN OPEN PRESSURE INJURY. RT. HIM DRESSING PEELING AND REPLACED WITH AN ALEVYN. WOUND UNDERNEATH IS A REDDENED/ BRUISED AREA WITH SKIN INTACT. PT. HAD A SECOND LARGE LOOSE BM AND WAS CLEANED AGAIN. PATEL REMOVED WITH CATH INTACT. PT. REPORTS CHRONIC ARTHRITIS ACHING THAT IS TOLERABLE. ASSISTED WITH BREAKFAST. PT. HAS A NONPRODUCTIVE COUGH AND IS ON ROOM AIR. WHEN SISTER SUPERIOR REMOVED TELE STICKERS, THE AREA BEGAN TO BLEED UNDERNEATH THE SKIN. PT. HAS SCATTERED BRUISING ON ARMS. ASSISTED WITH REPOSITIONING. PT. LEFT RESTING WITH CALL LIGHT IN REACH.
[2021-02-17] MEDS ORDERED: NYSTATIN15 GM TOP (12:21)
[2021-02-17] MEDS ORDERED: CEPHALEXIN500 MG PO (12:22)
--- NOTE | 2021-02-17 12:30 | NUR ---
Notified by Dr. Wolf, pt will return to [facility] today. Called and left a message for [facility]. Orders completed and faxed. Spoke with supervisor propellant charge loading for appropriate transport for this pt. Pt will require a [facility] van, updated [facility] van will not transport Covid +. Pt is unable to walk and has dementia and would be unsafe in [facility] transport. Will schedule with EMS for transport when I hear from [facility] they have accepted the orders.
--- NOTE | 2021-02-17 13:39 | NUR ---
Received text from JENN Luther reviewing orders. I called and scheduled EMS transport for 2pm. NOtified EMS pt needs to be taken through the side door into [facility].
--- NOTE | 2021-02-17 14:10 | NUR ---
PT LEFT WITH AMBULANCE TRANSPORT WITH ALL BELONGINGS. MIDLINE REMOVED BY THIS RN WITH CATH INTACT. PT. DENIES PAIN AND VITALS STABLE.
--- NOTE | 2021-02-17 15:30 | NUR ---
Was able to reach Ana M Joseph at [facility] after several calls. She has not spoken with pts , but did receive a call from Rhonda at [facility] today. Informed I have spoken with Granddaughter yesterday and then the grandson called today. Gave both of them her number and asked them to call as per their reports grandfather has dementia is overwhelmed. Updated pt is returning to T today.
--- NOTE | 2021-02-17 17:06 | NUR ---
REturned call to granddaughter, Zuly. She states she was able to speak with her grandfather today and he was willing to give financial info. She has spoken with Ana M Joseph prior to my call and have set a time to met with her and grandfather. Per Zuly, grandfather has stated over and over he has been speaking with Medicaid, actually he has been speaking with the [facility] for [facility] and he was unable to assist him with medicaid. Zuly denies further needs and will follow up with CHRISTELLE and Rhonda from [facility]. She is aware Briana return to [facility] today.
== END 2021-02-17 14:05 | DRG 177 ==
LOC: ED 20:44 → MS 23:14
PROVIDERS: ADMIT Internal Medicine; ATTEND Internal Medicine
PROC: 06HY33Z Insertion of Infusion Device into Lower Vein, Percutaneous Approach (ICD-10-PCS; principal; 2021-02-15)
PROC: 8E0ZXY6 Isolation (ICD-10-PCS; 2021-02-15)
DX: U07.1 COVID-19 (principal); G93.41 Metabolic encephalopathy; E87.1 Hypo-osmolality and hyponatremia; B37.0 Candidal stomatitis; I48.21 Permanent atrial fibrillation; K21.9 Gastro-esophageal reflux disease without esophagitis; M06.9 Rheumatoid arthritis, unspecified; Z86.711 Personal history of pulmonary embolism; I10 Essential (primary) hypertension; G89.29 Other chronic pain; Z90.710 Acquired absence of both cervix and uterus; Z87.891 Personal history of nicotine dependence; Z90.49 Acquired absence of other specified parts of digestive tract; Z98.890 Other specified postprocedural states; Z79.899 Other long term (current) drug therapy; N30.90 Cystitis, unspecified without hematuria; E86.1 Hypovolemia
CPT/HCPCS: 36569; 51702; 71045; 80053; 81001; 83605; 83735; 85007; 85025; 87040; 87088; 93005; 93010; 99285-25; C1751; C9113; J0696; J1650; J3475; J7030; J7121

== ENCOUNTER 2021-02-24 01:21 | Emergency (ER) | payer OTHER, MEDICARE, BC ==
[~2021-02-24] VITALS: Ht 165.1 cm; Wt 66.2 kg
[~2021-02-24 01:21] MED LIST changes: +ACETAMINOPHEN325 M1 PO; +CEPHALEXIN500 MG PO; +ELIQUIS5 M1 PO; +GERI-TUSSI100 MG/5 M PO; +GERI-TUSSIN DM473 M1 PO; +LIDODERM1 EACH TD; +MELATIN3 MG PO; +METOPROLOL SUC100 MG PO; +NORVASC10 MG PO; +NYSTATIN15 GM TOP; +POWDERLAX238 GM PO; +VENTOLIN HFA18 GM INH; +ZESTRIL5 MG PO; +[UNRECOGNIZED DRUG - OTHER] SUB-Q
[2021-02-24] MEDS ORDERED: AMLODIPINE BESY10 MG PO (02:24)
[2021-02-24] MEDS ORDERED: DULCOLAX10 MG PR (02:28)
== END 2021-02-24 04:08 | disposition home or self-care (01) ==
LOC: ED 01:21
DX: Z04.3 Encounter for examination and observation following other accident (principal); U07.1 COVID-19; I10 Essential (primary) hypertension; I48.91 Unspecified atrial fibrillation; Z87.891 Personal history of nicotine dependence; Z79.01 Long term (current) use of anticoagulants; Z79.899 Other long term (current) drug therapy; W19.XXXA Unspecified fall, initial encounter
CPT/HCPCS: 70450; 99283-25

== ENCOUNTER 2021-02-28 05:11 | Emergency (ER) | payer MEDICARE, BC ==
[~2021-02-28] VITALS: Ht 165.1 cm; Wt 66.2 kg
[2021-02-28] MEDS ORDERED: FLUOXETINE HCL20 MG PO (05:40)
--- NOTE | 2021-03-01 02:21 | EKG ---
[facility] [address] [place] [address] Signed Atrial fibrillation with rapid ventricular response Nonspecific ST and T wave abnormality Abnormal ECG When compared with ECG of 15-FEB-2021 20:56, T wave inversion no longer evident in Inferior leads Nonspecific T wave abnormality, improved in Lateral leads Confirmed by RUBY MARTINEZ MD ([id number]) on 03/01/2021 2:21:26 AM Electronically Signed By: RUBY MARTINEZ MD 03/01/21220 PATIENT NAME: JOVANA CHAIREZ Electrocardiogram DATE OF : 42 PHYSICIAN: RUBY MARTINEZ MD REPORT #: [id number] REPORT IS CONFIDENTIAL AND NOT TO BE RELEASED WITHOUT AUTHORIZATION
[2021-03-01] MEDS ORDERED: TREXALL10 MG PO (09:53)
[2021-03-01] MEDS ORDERED: NORVASC10 MG PO (09:54)
== END 2021-02-28 08:34 ==
LOC: ED 05:11
DX: I48.20 Chronic atrial fibrillation, unspecified (principal); D61.818 Other pancytopenia; I10 Essential (primary) hypertension; M06.9 Rheumatoid arthritis, unspecified; Z87.891 Personal history of nicotine dependence; Z79.899 Other long term (current) drug therapy; Z79.01 Long term (current) use of anticoagulants
CPT/HCPCS: 51702; 71045; 80053; 81001; 85007; 85025; 85610; 85730; 93005; 93010; 99285-25; J2405; J7030

== ENCOUNTER 2021-03-01 07:46 | Observation (INO) | payer MEDICARE, BC ==
[~2021-03-01] VITALS: Ht 165.1 cm; Wt 66.2 kg
[~2021-03-01 07:46] MED LIST changes: +FLUOXETINE HCL20 MG PO
[2021-03-01] MEDS ORDERED: TREXALL10 MG PO (09:53)
[2021-03-01] MEDS ORDERED: NORVASC10 MG PO (09:54)
--- NOTE | 2021-03-01 14:57 | NUR ---
MOVED PT FROM ED BED TO MED SURG BED. PT OPENED EYES AND GRIMACED BUT QUICKLY BACK TO SLEEP. DID NOT WAKE FOR DTR. FAMILY IN ROOM, ANSWERED ALL QUESTIONS. PT HAS MULT BRUISES ON BODY FROM FALLS AT [facility]. BOXING INSPECTOR SET UP AND VERIFIED WITH JENN ROWE.
--- NOTE | 2021-03-01 15:50 | NUR ---
Spoke with Granddaughter Aaron. Pts daughter and spouse in the room Pt's spouse has gone home. Answered comfort care questions and encouraged family to decide on a mortuary and call and give them their name. Also discussed check list of things to do when someone passes. Questions answered and discussed pts breathing as she is Wally-stock- ing with 7-12 sec pauses. They would like to keep the [address] and let them know this is ok, if this is their wish. Kitchen brought food cart with sweet rolls and coffee to the room. Family deny further questions. They would like to use [facility] and charge nurse notified.
--- NOTE | 2021-03-01 16:13 | NUR ---
PT FAMILY IN ROOM. APPEARS COMFORTABLE. FAMILY DENIES CONCERNS OR QUESTIONS ATT.
--- NOTE | 2021-03-01 18:25 | NUR ---
REPOSTIONED PT AGAIN AND CHANGED DEPENDS FOR FIRST TIME. JOSE A AREA IS VERY EXCORIATED AND BRUISING CONTINUES OVER ALL OF HER BODY. APPLIED BARRIER CREAM AND TRIED TO NOT ROLL HER VERY FAR. BREATHING IS SHALLOW AND IRREGULAR. APPEARS TO BE COMFORTABLE THOUGH. DID ORAL CARE AGAIN AND WAS ABLE TO SEE THAT IT IS HER TONGUE THE BLOOD IS COMING FROM.
--- NOTE | 2021-03-01 19:56 | NUR ---
RECEIVED REPORT FROM DAY SHIFT RN. PATIENT IS RESTING IN BED WITH EYES CLSOED, RR 15. FAMILY DENIES ANY NEEDS. CALL LIGHT IN REACH.
--- NOTE | 2021-03-01 20:25 | NUR ---
NAHED RN NOTIFIED THIS RN THAT PATIENT HAD PASSED. PATIENT ASSESED AND PATIENT HAS NO SIGNS OF LIFE, NO HR OBSERVED OR RR. FAMILY IS AT THE BEDSIDE. PLACED CALL TO TECHNICAL AGRONOMIST. NAMRATA RN PLACED CALL TO MD. PASTORAL CARE NOTIFIED. TODD RN IS PLACING CALL TO DONOR LINE. FAMILY DENIES ANY NEEDS.
--- NOTE | 2021-03-01 20:49 | NUR ---
@2019 GRANDDAUGHTER CALLED THIS RN INTO ROOM, SAYING "I THINK SHE HAS PASSED". NOTED NO HEARTBEAT x 1 MIN, NO RESP. DR MARTINEZ, SUPERVISER, [facility] CARE NOTIFIED. DR MARTINEZ TO FLOOR @ 2044. FAMILY CONTINUES TO BE IN ROOM. WAITING FOR PT . DONOR LINE HAS BEEN CONTACTED BY AIR TRAFFIC INSTRUCTOR.
--- NOTE | 2021-03-01 21:09 | NUR ---
DONOR PAPERWORK FAXED TO [phone]
--- NOTE | 2021-03-01 21:20 | NUR ---
PASTORAL CARE AT BEDSIDE. FAMILY DENIES ANY NEEDS AT THIS TIME.
--- NOTE | 2021-03-01 21:46 | NUR ---
[facility] HERE @ 2137, NED, PASTORIAL CARE WELL. FAMILY HAS LEFT ROOM.
--- NOTE | 2021-03-01 21:53 | NUR ---
Called into [facility] at 2023 because PT had passed. PT's family was here when I arrived. I met with the nurse and then talked with PT's granddaughter who was doing most of the communicating. I went into PT's room and offered my condolences and offered to pray with them. PT's asked me to call the home. I called the [facility] at 2007 and let the family know when to expect them. They opted to say their good-byes before the mortuary arrived. [facility] arrived at 2030.
--- NOTE | 2021-03-02 10:42 | NUR ---
Notified [facility] at [facility] of pt and faxed summary for their records.
--- NOTE | 2021-03-03 15:48 | EKG ---
[facility] [address] [place] [address] Signed Poor data quality, interpretation may be adversely affected Accelerated Junctional rhythm Abnormal ECG When compared with ECG of 28-FEB-2021 05:22, Junctional rhythm has replaced Atrial fibrillation Vent. rate has decreased BY [address] no longer depressed in Anterior leads Nonspecific T wave abnormality no longer evident in Inferior leads Confirmed by RUBY MARTINEZ MD ([id number] on 03/03/2021 3:48:27 PM Electronically Signed By: RUBY MARTINEZ MD 03/03/21 1548 PATIENT NAME: JOVANA CHAIREZ Electrocardiogram DATE OF : 42 PHYSICIAN: RUBY MARTINEZ MD REPORT #: [id number] REPORT IS CONFIDENTIAL AND NOT TO BE RELEASED WITHOUT AUTHORIZATION
== END 2021-03-01 21:40 ==
LOC: ED 07:46 → MS 07:48
PROVIDERS: ADMIT Internal Medicine; ATTEND Internal Medicine
DX: D61.9 Aplastic anemia, unspecified (principal); G93.41 Metabolic encephalopathy; I10 Essential (primary) hypertension; M06.9 Rheumatoid arthritis, unspecified; I48.91 Unspecified atrial fibrillation; I73.9 Peripheral vascular disease, unspecified; K21.9 Gastro-esophageal reflux disease without esophagitis; Z87.891 Personal history of nicotine dependence; Z79.01 Long term (current) use of anticoagulants; Z86.16 Personal history of COVID-19
CPT/HCPCS: 70450; 71045; 80053; 81001; 85007; 85025; 85610; 87088; 93005; 93010; 96374; 99285-25; G0378; J2270